=== PATIENT | female | born 1970 | race Caucasian/White ===

== ENCOUNTER 2017-06-13 15:45 | Observation (INO) ==
[2017-06-13] MEDS ORDERED: 0.9 % Sodium Chloride 1,000 ML IVC ONE (15:51)
[2017-06-13] MEDS ORDERED: *HR* Promethazine 25 MG/ML VIAL IVP ONE ×2 (15:51→18:52)
[2017-06-13] MEDS ORDERED: *HR* HYDROmorphone (PF) 1 MG/ML SYRINGE IVP ONE ×2 (15:51→18:54)
--- NOTE | 2017-06-13 16:10 | Emergency Department Note ---
Disposition Clinical Impression: Pneumonia Nausea & vomiting Qualifiers: Vomiting type: unspecified Vomiting Intractability: non-intractable Qualified Code(s): R11.2 - Nausea with vomiting, unspecified Abdominal pain Qualifiers: Abdominal location: generalized Qualified Code(s): R10.84 - Generalized abdominal pain Disposition: Admitted As Inpatient Condition: Good Time of Disposition: 19:10 General Adult HPI - General Chief complaint: ED Nausea/Vomiting/Diarrhea Stated complaint: N/V x3 days Time Seen by Provider: 06/13/17 15:48 Source: patient, EMS Mode of arrival: EMS Limitations: no limitations Nursing Notes Reviewed: Yes Vital Signs Reviewed: Yes - History of Present Illness HPI Narrative: Patient is a 46-year-old female that presents to the emergency department with abdominal pain and nausea and vomiting. She states that on her she was diagnosed with pneumonia and was treated with antibiotics. On June 01 she had a removal of an ovary and the tube. The past 3 days she has had increased abdominal pain and nausea and vomiting. She has tried taking Zofran and the pain medication was prescribed by her doctor which does not seem to help. She states that the pain is a stabbing pain all over her abdomen. She rates the pain as a 9 out of 10. Patient states that she has some mild shortness of breath and chills. Patient denies any chest pain, fever, urinary symptoms or any changes in her bowels. Pain Scale: 10 - Related Data Home Medications Medication Instructions Recorded Confirmed Albuterol Sulfate [Albuterol 2 puff IH Q4H PRN 06/13/17 06/13/17 Inhaler] Previous Rx's Medication Instructions Recorded Ibuprofen [Motrin] 600 mg PO Q6HR PRN #40 tab 06/03/17 Oxycodone HCl/Acetaminophen 1 each PO Q4H PRN #40 tablet 06/03/17 [Percocet 5-325 mg Tablet] Allergies Allergy/AdvReac Type Severity Reaction Status Date / Time No Known Allergies Allergy Verified 06/03/17 09:19 All systems ED: reviewed and negative except as stated. Constitutional: Reports: chills. Denies: fever Cardiovascular: Denies: chest pain Respiratory: Reports: dyspnea Gastrointestinal: Reports: abdominal pain, nausea, vomiting. Denies: diarrhea Genitourinary: Denies: urgency, dysuria, frequency, hematuria Past Medical History - Past Medical History Medical history: Reports: other Surgical history: Reports: Psychiatric history: Reports: panic disorder [employer] ENG[employer] history: Reports: non-contributory - Social History Smoking Status: Former smoker Smokeless Tobacco Status: No Alcohol use: Reports: none Drug use: Reports: none Physical Exam - General Limitations: no limitations General appearance: alert, other (Appears to be uncomfortable) - Neck Neck exam: Present: normal inspection, full ROM, trachea midline - Respiratory Respiratory exam: Present: other (Rales and left lower lobe). Absent: respiratory distress - Cardiovascular Cardiovascular exam: Present: regular rate, normal rhythm, normal heart sounds, +S1, +S2 - Abdominal Exam Abdominal exam: Present: soft, tenderness (Inconsistent tenderness of the abdomen. Patient states that she has diffuse tenderness on palpation but there is no palpation when the patient was distracted and the stethoscope was pressed on the abdomen to auscultate.), diminished bowel sounds Abdominal tenderness: Present: diffuse, moderate - Neurological Exam Neurological exam: Present: alert, oriented X3 - Psychiatric Psychiatric exam: Present: normal affect, normal mood - Skin Skin exam: Present: warm, dry, intact Course Vital Signs Temperature 98.1 F 06/13/17 15:48 Pulse Rate 91 06/13/17 15:48 Respiratory Rate 22 06/13/17 15:48 Blood Pressure 135/105 06/13/17 15:48 O2 Sat by Pulse Oximetry 98 06/13/17 15:48 Temperature 98.0 F 06/14/17 10:53 Pulse Rate 79 06/14/17 10:53 Respiratory Rate 18 06/14/17 11:06 Blood Pressure 90/54 06/14/17 10:53 O2 Sat by Pulse Oximetry 95 06/14/17 11:06 Oxygen Delivery Oxygen Delivery Room Air Medical Decision Making - MDM Narrative Medical decision making narrative: The patient having abdominal pain after surgery as well as nausea and vomiting we have ordered a CBC, BMP, hepatic panel, EKG, troponin and chest x-ray, CT of the abdomen and pelvis, lactic acid and blood cultures. We have also ordered Phenergan and Dilaudid to help with the pain and nausea. The chest x-ray showed no acute abnormality. The CT scan of the abdomen and pelvis showed bibasilar infiltrate and atelectasis, No acute intra-abdominal pathology was noted. This is likely suspicious for pneumonia and we have started the patient on vancomycin and Zosyn at this time. We have also given pain medication as well as Phenergan for the patient's nausea and abdominal discomfort. On examination there is some inconsistencies with the abdominal pain. On palpation he patient was acutely tender diffusely but when auscultating on the abdomen and pressing with the stethoscope while the patient was distracted there was no reaction of pain. Due to the patient having failed outpatient therapy for pneumonia approximately 2 weeks ago and having been hospitalized for her recent surgery we will treat her pneumonia with vancomycin and Zosyn. I called and spoke with the hospitalist service and they have accepted the patient. She will be admitted to the hospital at this time. - Medical Records Medical records reviewed: Yes I reviewed the patient's medical records. - Lab Data Lab results reviewed: Yes I reviewed the patient's lab results. Result diagrams: 06/14/17 04:34 06/14/17 04:34 Lab Results 06/13/17 06/13/17 06/13/17 Range/Units 16:52 16:52 16:52 WBC 9.6 (4.3-11.1) K/mcL RBC 5.38 H (3.82-4.97) M/mcL Hgb 14.8 (11.5-15.4) g/dL Hct 46.1 H (35.3-44.9) % MCV 85.7 (83.0-100.0) fL MCH 27.5 L (28.0-33.3) pg MCHC 32.1 (31.6-35.5) g/dL RDW 13.3 (11.5-14.5) % Plt Count 264 (140-400) K/mcL MPV 10.0 (9.4-12.4) fL Immature Gran % 0.4 (0-4) % Seg Neutrophils % 83.1 % Lymphocytes % 12.5 % Monocytes % 3.4 % Eosinophils % 0.3 % Basophils % 0.3 % Neutrophils # 8.0 (1.6-8.9) K/mcL Lymphocytes # 1.2 (0.6-4.6) K/mcL Monocytes # 0.3 (0.0-1.3) K/mcL Eosinophils # 0.0 (0.0-0.6) K/mcL Basophils # 0.0 (0.0-0.2) K/mcL PT (9.4-12.1) Seconds INR Sodium 139 (136-145) mEq/L Potassium 4.1 (3.5-4.5) mEq/L Chloride 104 (98-109) mEq/L Carbon Dioxide 28 (19-29) mEq/L BUN 14 (7-20) mg/dL Creatinine 1.10 (0.57-1.11) mg/dL Est GFR ( Amer) > 60 (> 60) Est GFR (Non-Af Amer) 53 L (> 60) BUN/Creatinine Ratio 13 (6-26) Glucose 125 H (70-99) mg/dL Calculated Osmolality 290 (280-300) Lactic Acid (0.5-2.2) mmol/L Calcium 9.8 (8.6-10.8) mg/dL Phosphorus (2.3-4.7) mg/dL Magnesium (1.6-2.6) mg/dL Total Bilirubin 0.5 (0.2-1.2) mg/dL Direct Bilirubin 0.2 (0.0-0.5) mg/dL Indirect Bilirubin 0.3 (0.0-1.2) mg/dL AST 29 (5-34) Units/L ALT 35 (0-55) Units/L Alkaline Phosphatase 129 H (38-126) Units/L Troponin I 0.00 (0-0.03) ng/mL Serum Total Protein 8.5 H (6.0-8.3) g/dL Albumin 3.6 (3.5-5.0) g/dL Globulin 4.9 H (2.4-3.5) g/dL Albumin/Globulin Ratio 0.7 L (1.1-2.2) Lipase 14 (8-78) Units/L 06/13/17 06/13/17 06/13/17 Range/Units 16:52 16:52 16:52 WBC (4.3-11.1) K/mcL RBC (3.82-4.97) M/mcL Hgb (11.5-15.4) g/dL Hct (35.3-44.9) % MCV (83.0-100.0) fL MCH (28.0-33.3) pg MCHC (31.6-35.5) g/dL RDW (11.5-14.5) % Plt Count (140-400) K/mcL MPV (9.4-12.4) fL Immature Gran % (0-4) % Seg Neutrophils % % Lymphocytes % % Monocytes % % Eosinophils % % Basophils % % Neutrophils # (1.6-8.9) K/mcL Lymphocytes # (0.6-4.6) K/mcL Monocytes # (0.0-1.3) K/mcL Eosinophils # (0.0-0.6) K/mcL Basophils # (0.0-0.2) K/mcL PT 13.2 H (9.4-12.1) Seconds INR 1.2 Sodium (136-145) mEq/L Potassium (3.5-4.5) mEq/L Chloride (98-109) mEq/L Carbon Dioxide (19-29) mEq/L BUN (7-20) mg/dL Creatinine (0.57-1.11) mg/dL Est GFR ( Amer) (> 60) Est GFR (Non-Af Amer) (> 60) BUN/Creatinine Ratio (6-26) Glucose (70-99) mg/dL Calculated Osmolality (280-300) Lactic Acid 1.6 (0.5-2.2) mmol/L Calcium (8.6-10.8) mg/dL Phosphorus 3.1 (2.3-4.7) mg/dL Magnesium 1.6 (1.6-2.6) mg/dL Total Bilirubin (0.2-1.2) mg/dL Direct Bilirubin (0.0-0.5) mg/dL Indirect Bilirubin (0.0-1.2) mg/dL AST (5-34) Units/L ALT (0-55) Units/L Alkaline Phosphatase (38-126) Units/L Troponin I (0-0.03) ng/mL Serum Total Protein (6.0-8.3) g/dL Albumin (3.5-5.0) g/dL Globulin (2.4-3.5) g/dL Albumin/Globulin Ratio (1.1-2.2) Lipase (8-78) Units/L - Radiology Data Radiology results reviewed: Yes I reviewed the patient's radiology results. Abdomen/Pelvis CT 06/13/17 15:53 IMPRESSION: Bibasilar infiltrates and atelectasis. D/ / Bridger Graves MD / Bridger Graves MD Interpreting Provider: Bridger Graves MD Chest X-Ray 06/13/17 16:00 IMPRESSION: No acute findings. D/ / Lorraine Funk MD / Lorraine Funk MD Interpreting Provider: Lorraine Funk MD Attestation Statement - Attestation Attestation: I examined this patient and my medical decision-making was reviewed with the Resident Physician, Dr. Ambrosio. I agree with the documented findings, disposition and treatment plan as described except to the extent set forth below. Pt is a 46 yo wf, brought to us by EMS for abd pain, and N/V following pelvic surgery by Dr. Rico. Pt s/p R tube/ovary removal for a complex overian cyst causing pelvic pain on 06/03/17. Pt DC'd on 06/04, and while assessed in ED prior to admission for her surgery, was diagnosed with pneumonia, and on antibiotics. Pt did well post op and DC'd home. Pt c/o not feeling well for the past week, then developed intractable N/V today with grad worsening abd pain, which is generalized. VSS on arrival. Pt actively vomiting on arrival to ED. I agree with pt's PE as documented. Pt placed on monitor/pulse ox, IV established, labs sent and IVF started with phenergan/morphine given. EKG shows no acute ischemia. Labs wnl. Lactate wnl. CT wnl, shows bilateral consolidation in lung bases. Will cover for pneumonia, blood cxs obtained and antibx initiated in ED. IVF continued. Pt continues to have N/V despite antiemetics. Will admit for further mgmt and eval for post op pneumonia, intractable N/V. Accepted by hospitalist.
[2017-06-13 17:03] LABS: Basophils % 0.3 %; Eosinophils % 0.3 %; Hematocrit 46.1 % (35.3-44.9); Hemoglobin 14.8 g/dL (11.5-15.4); Immature Granulocytes % 0.4 % (0-4); Lymphocytes # 1.2 K/mcL (0.6-4.6); Lymphocytes % 12.5 %; Mean Corpuscular HGB Conc 32.1 g/dL (31.6-35.5); Mean Corpuscular Hemoglobin 27.5 pg (28.0-33.3); Mean Corpuscular Volume 85.7 fL (83.0-100.0); Monocytes # 0.3 K/mcL (0.0-1.3); Monocytes % 3.4 %; Platelet Count 264 K/mcL (140-400); Red Blood Count 5.38 M/mcL (3.82-4.97); Red Cell Distribution Width 13.3 % (11.5-14.5); Segmented Neutrophils % 83.1 %
[2017-06-13 17:21] LABS: Alanine Aminotransferase 35 Units/L (0-55); Albumin 3.6 g/dL (3.5-5.0); Albumin/Globulin Ratio 0.7 (1.1-2.2); Alkaline Phosphatase 129 Units/L (38-126); Aspartate Amino Transferase 29 Units/L (5-34); BUN/Creatinine Ratio 13 (6-26); Bilirubin,Direct 0.2 mg/dL (0.0-0.5); Bilirubin,Indirect 0.3 mg/dL (0.0-1.2); Bilirubin,Total 0.5 mg/dL (0.2-1.2); Blood Urea Nitrogen 14 mg/dL (7-20); Calcium 9.8 mg/dL (8.6-10.8); Carbon Dioxide 28 mEq/L (19-29); Chloride 104 mEq/L (98-109); Globulin 4.9 g/dL (2.4-3.5); Glucose 125 mg/dL (70-99); Lipase 14 Units/L (8-78); Osmolality,Calculated 290 (280-300); Potassium 4.1 mEq/L (3.5-4.5); Sodium 139 mEq/L (136-145); Total Protein 8.5 g/dL (6.0-8.3); eGFR For African Americans > 60 (> 60); eGFR For Non-African Americans 53 (> 60)
[2017-06-13] MEDS ORDERED: Piperacillin/Tazobactam 4.5 GM in D5% in Water (Mini-Bag+) 100 ML IVPB ONE (18:53)
[2017-06-13] MEDS ORDERED: Vancomycin 1,000 MG in D5% in Water 250 ML IVPB ONE (18:54)
--- NOTE | 2017-06-13 19:58 | Internal Med History&Physical ---
<Kiel Bobo - Last Filed: 06/13/17 23:25> Date of Encounter: 06/13/17 Time of Encounter: 19:56 Assessment and Plan (1) Acute exacerbation of chronic obstructive pulmonary disease (COPD) Current visit: Yes Status: Acute Continue Solumedrol, Duonebs, and antibiotics. Recent 10 day treatment with Levaquin. Patient will need outpatient pulmonology follow up for PFTs. (2) Pneumonia Current visit: Yes Status: Suspected Unlikely PNA. Patient is afebrile, no cough or sputum production, positive chills, SOB, wheezing Patient recently completed 10 day course of Levaquin for pneumonia diagnosed on 05/28/17 CT adb/plv shows bibasilar infiltrates and atelectasis (possible residual infiltrates from recent PNA) Given Vanc and Zosyn in the ED. Given recent treatment with Levaquin, will treat with Doxcycline at ths time CT chest pending. if negative will stop Doxycycline Blood and sputum cultures ordered. Continue incentive spirometry and Duonebs. Qualifiers: Pneumonia type: due to unspecified organism Laterality: bilateral Lung location: lower lobe of lung Qualified Code(s): J18.9 - Pneumonia, unspecified organism (3) Abdominal pain Current visit: Yes Status: Acute POD # 10 s/p bilateral salpingo and right oophorectomy on 06/03/17 Patient reports her brother has colon cancer and she denies having a previous EGD/ colonoscopy. CT/abd plv shows Bibasilar infiltrates and atelectasis with no acute intra- abdominal abnormality Pain control with Dilaudid & Percocet Gallbladder ultrasound ordered to r/o cholecystitis Hepatitis panel pending Qualifiers: Abdominal location: generalized Qualified Code(s): R10.84 - Generalized abdominal pain (4) Nausea & vomiting Current visit: Yes Status: Acute Continue Zofran IV prn Qualifiers: Vomiting type: unspecified Vomiting Intractability: non-intractable Qualified Code(s): R11.2 - Nausea with vomiting, unspecified (5) Tobacco dependence Current visit: Yes Status: Acute Tobacco cessation counseling. Patient reports she spotted smoking 1 week ago and has a 25 pack year history of smoking. (6) DVT prophylaxis Current visit: Yes Status: Acute SCDs Internal Medicine - H&P: HPI Chief complaint: Abd pain, SOB Admitted From: Home Plans for Post Hospital Care: Home History of present illness: Ms. Harrington is a 46 year old female with a PMH of COPD, panic disorder, tobacco dependence, bilateral salpingo and right oophorectomy on 06/01/17 for abdominal pain, and recently completed 10 day course of Levaquin for pneumonia diagnosed on 05/28/17 that presented c/o SOB, abd pain, N/V/D, and chills for the past 6 days. She reports 9/10 severity sharp, stabbing generalized abdominal pain, bilious emesis, anorexia, and not being able to keep her post-op Percocet down at home due to vomiting. Patient denies fever, cough, sputum production, CP, constipation, dysuria, frequency, hematuria, back pain, changes in surgical wounds, or leg swelling. Patient reports her brother has colon cancer and she denies having a previous EGD/ colonoscopy. Patient reports she spotted smoking 1 week ago and has a 25 pack year history of smoking. Past Med Surg Social Fam HX - Past Medical History Medical history: COPD, other (pelvic pain) Psychiatric history: panic disorder - Past Surgical History Surgical History: , other (BSO) - Social History Smoking Status: Current every day smoker Smokeless Tobacco Status: No Alcohol use: none Drug use: none Current living situation: With Family Activity Level: Independent ambulation - Family History Mother Living Status: Hx Family Cardiac Disorders: Yes (HTN) Father Living Status: Hx Family Cardiac Disorders: Yes (NE) Internal Medicine - H&P: Meds Ibuprofen [Motrin] 600 mg PO Q6HR PRN #40 tab 06/03/17 [Rx] Oxycodone HCl/Acetaminophen [Percocet 5-325 mg Tablet] 1 each PO Q4H PRN #40 tablet 06/03/17 [Rx] Albuterol Sulfate [Albuterol Inhaler] 2 puff IH Q4H PRN 06/13/17 [History] 3 Allergy/AdvReac Type Severity Reaction Status Date / Time No Known Allergies Allergy Verified 06/03/17 09:19 All Systems PM: A 10-system review of systems was performed and is negative for pertinent findings except as documented above in the HPI. - Constitutional Constitutional: anorexia, chills, no fever(s), no weight gain, no weight loss - EENT Eyes: no change in vision Nose, mouth and throat: no nasal congestion, no sinus pressure, no sore throat - Cardiovascular Cardiovascular ROS IM: no chest pain, no palpitations - Respiratory Respiratory: dyspnea, wheezing, no cough, no excessive phlegm production, no change in phlegm color - Gastrointestinal Gastrointestinal: abdominal pain, diarrhea, nausea, vomiting, no hematemesis - Genitourinary Genitourinary: no dysuria, no urinary frequency, no urinary urgency Menstruation: post menopausal - Musculoskeletal Musculoskeletal ROS IM: no back pain, no numbness, no tingling - Integumentary Integumentary IM: no erythema - Neurological Neurological ROS: no confusion, no numbness, no tingling, no weakness - Psychiatric Psychiatric: no anxiety, no depression - Endocrine Endocrine IM: no polydipsia, no polyphagia, no polyuria - Constitutional Vitals: Temp Pulse Resp BP Pulse Ox 98.6 F 93 14 140/88 98 06/13/17 18:45 06/13/17 19:25 06/13/17 19:25 06/13/17 19:25 06/13/17 19:25 General appearance: Present: cooperative, A&O X 3, pleasant, no acute distress, answers questions appropriately - Head Head exam: Present: atraumatic, normal inspection, normocephalic - Eye Eye exam: Present: EOMI, PERRL - ENT ENT exam: Present: mucous membranes moist, normal oropharynx - Neck Neck exam general surgery: Present: normal inspection, supple. Absent: lymphadenopathy, tenderness - Respiratory Respiratory exam: Present: prolonged expiratory phase, wheezes. Absent: accessory muscle use, respiratory distress - Cardiovascular Cardiovascular exam: Present: RRR, +S1, +S2 - GI/Abdominal GI/Abdominal exam: Present: guarding, hypoactive bowel sounds, rebound, soft. Absent: distended, firm - Extremities Exam Extremities exam: Present: full ROM, warm. Absent: pedal edema - Back Exam Back exam: Present: full ROM, normal inspection. Absent: paraspinal tenderness - Neurological Exam Neurological exam: Present: alert, CN II-XII intact, strengths equal and symetr throughout, speech deficit. Absent: altered - Psychiatric Psychiatric exam: Present: anxious, normal mood - Skin Skin exam: Present: dry (abd incisions C/D/I x4 lower abd, no signs of infection ), normal color (tattoos), warm. Absent: erythema Internal Med - H&P Results - Labs CBC & Chem 7: 06/13/17 16:52 06/13/17 16:52 - Impressions Impressions Abdomen/Pelvis CT 06/13/17 15:53 IMPRESSION: Bibasilar infiltrates and atelectasis. D/ / Bridger Graves MD / Bridger Graves MD Interpreting Provider: Bridger Graves MD Chest X-Ray 06/13/17 16:00 IMPRESSION: No acute findings. D/ / Lorraine Funk MD / Lorraine Funk MD Interpreting Provider: Lorraine Funk MD <Jose Ramon Santo T - Last Filed: 06/14/17 01:20> Date of Encounter: 06/14/17 Internal Medicine - H&P: HPI History of present illness: Ms. Harrington is a 46 year old female All Systems PM: A 10-system review of systems was performed and is negative for pertinent findings except as documented above in the HPI. - Constitutional Vitals: Temp Pulse Resp BP Pulse Ox 98.9 F 92 16 95/59 95 06/13/17 23:54 06/13/17 23:54 06/13/17 23:54 06/13/17 23:54 06/13/17 23:54 Internal Med - H&P Results - Labs CBC & Chem 7: 06/13/17 16:52 06/13/17 16:52 - Attending Attestation I have independently seen and examined this patient on 06/13/17 and reviewed plan of care with the SAFE DEPOSIT CLERK/resident physician and the patient She is admitted after presenting to ER with abdominal discomfort, nausea and vomiting She has no fever, cough, or shortness of breath She denies chest pain, palpitations or dizziness Physical Exam: VSS, not in distress. Neuro: AAOX3, no gross deficits, chest is CTAB, abdomen is soft and vaguely tender without rebound, periumbilical scar is intact, no guarding. BS present in all quadrants. Her chest is CTAB Labs and Imaging reviewed: CBC/chem/FT/Lipase WNL. Abdomen CT with bibasilar infiltrates, CXR is clear A/P Enteritis: Supportive care, obtain gall bladder USS, LFTS are normal. Bilateral infiltrates: Patient has no symptoms of pneumonia. Obtain Chest CT. D/ C antibiotics if Chest CT is negative, continue Doxycycline only if chest imaging supports Pneumonia COPDE: Duonebs/Prednisone/Doxycyline Rest of details as in resident physicians documentation
[2017-06-13] MEDS ORDERED: Naloxone 0.4 MG/ML INJ IVP PRN (20:30)
[2017-06-13] MEDS ORDERED: *HR* Morphine 2 MG/ML SYRINGE IVP PRN (20:30)
[2017-06-13] MEDS ORDERED: Ondansetron 4 MG/2 ML VIAL IVP PRN (20:30)
[2017-06-13] MEDS ORDERED: 0.9 % Sodium Chloride 1,000 ML IVC SCH (20:30)
[2017-06-13] MEDS ORDERED: *HR* OxyCODONE/APAP 5/325 TABLET PO PRN (20:34)
[2017-06-13] MEDS ORDERED: Vancomycin (wt based) 1,000 MG VIAL IVPB SCH (21:00)
[2017-06-13 21:10] LABS: INR 1.2; Prothrombin Time 13.2 Seconds (9.4-12.1)
[2017-06-13] MEDS ORDERED: methylPREDNISolone 125 MG/2 ML VIAL IVP ONE (21:25)
[2017-06-13] MEDS ORDERED: Vancomycin 1,250 MG in D5% in Water 250 ML IVPB SCH ×2 (22:00)
[2017-06-13 22:33] LABS: Magnesium 1.6 mg/dL (1.6-2.6); Phosphorous 3.1 mg/dL (2.3-4.7)
[2017-06-13] MEDS: Ipratropium/Albuterol Neb 3 ML IH SCH ×2 (22:46→23:08)
[2017-06-13] MEDS: *HR* HYDROmorphone (PF) 1 MG/ML SYRINGE IVP PRN (22:59)
[2017-06-14] MEDS ORDERED: Piperacillin/Tazobactam 3.375 GM in D5% in Water (Mini-Bag+) 100 ML IVPB SCH (03:00)
[2017-06-14] MEDS: Ipratropium/Albuterol Neb 3 ML IH SCH ×3 (03:55→11:05)
[2017-06-14 04:06] LABS: Bilirubin,Urine Negative (Negative); Blood,Urine Negative (Negative); Clarity,Urine Clear (Clear); Color,Urine Yellow (Yellow); Glucose,Urine (UA) Normal (Normal); Ketones,Urine Negative (Negative); Leukocyte Esterase,Urine Negative (Negative); Nitrite,Urine Negative (Negative); PH,Urine 7.5 pH Units (5.0-8.0); Protein,Urine 30 mg/dL (Neg-Trace); Specific Gravity,Urine > 1.030 (1.010-1.025); Urobilinogen,Urine Normal (Normal)
[2017-06-14 04:08] LABS: Bacteria,Urine Few per hpf (None-Few); Hyaline Casts,Urine Few per lpf (None-Few); Squamous Epithelial Cell,Urine Many per lpf (None-Few)
[2017-06-14 04:50] LABS: Calcium Oxalate Crystals,Urine Present; Yeast,Urine Few per hpf (None Seen)
[2017-06-14 05:14] LABS: Basophils % 0.2 %; Eosinophils % 0.1 %; Hematocrit 40.2 % (35.3-44.9); Immature Granulocytes % 0.4 % (0-4); Lymphocytes # 1.2 K/mcL (0.6-4.6); Lymphocytes % 11.6 %; Mean Corpuscular HGB Conc 32.8 g/dL (31.6-35.5); Mean Corpuscular Hemoglobin 28.5 pg (28.0-33.3); Mean Corpuscular Volume 86.8 fL (83.0-100.0); Mean Platelet Volume 10.3 fL (9.4-12.4); Monocytes # 0.1 K/mcL (0.0-1.3); Neutrophils # 8.8 K/mcL (1.6-8.9); Platelet Count 231 K/mcL (140-400); Red Blood Count 4.63 M/mcL (3.82-4.97); Red Cell Distribution Width 13.4 % (11.5-14.5); Segmented Neutrophils % 86.7 %
[2017-06-14 05:24] LABS: Hemoglobin 13.2 g/dL (11.5-15.4)
[2017-06-14 05:33] LABS: Alanine Aminotransferase 25 Units/L (0-55); Albumin/Globulin Ratio 0.7 (1.1-2.2); Alkaline Phosphatase 105 Units/L (38-126); Aspartate Amino Transferase 21 Units/L (5-34); BUN/Creatinine Ratio 15 (6-26); Bilirubin,Total 0.5 mg/dL (0.2-1.2); Blood Urea Nitrogen 15 mg/dL (7-20); Calcium 8.9 mg/dL (8.6-10.8); Carbon Dioxide 23 mEq/L (19-29); Chloride 106 mEq/L (98-109); Globulin 4.2 g/dL (2.4-3.5); Glucose 155 mg/dL (70-99); Osmolality,Calculated 290 (280-300); Potassium 3.6 mEq/L (3.5-4.5); Sodium 138 mEq/L (136-145); Total Protein 7.2 g/dL (6.0-8.3); eGFR For African Americans > 60 (> 60); eGFR For Non-African Americans 59 (> 60)
[2017-06-14] MEDS: *HR* HYDROmorphone (PF) 1 MG/ML SYRINGE IVP PRN (05:52)
[2017-06-14] MEDS ORDERED: Doxycycline 100 MG in 0.9 % Sodium Chloride Mini Bag 100 ML IVPB SCH (06:00)
[2017-06-14] MEDS ORDERED: methylPREDNISolone 125 MG/2 ML VIAL IVP SCH (06:00)
[2017-06-14] MEDS ORDERED: Famotidine 20 MG/2 ML VIAL IVP SCH (06:00)
[2017-06-14 09:40] LABS: Hepatitis A Antibody IgM Nonreactive (Nonreactive); Hepatitis B Core IgM Nonreactive (Nonreactive); Hepatitis B Surface Antigen Nonreactive (Nonreactive); Hepatitis C Virus Antibody Nonreactive (Nonreactive)
[2017-06-14 10:57] VITALS: BP 90/54
--- NOTE | 2017-06-14 13:26 | Discharge Summary ---
Date of Encounter: 06/14/17 Time of Encounter: 11:15 - Discharge Diagnosis (1) Abdominal pain Priority: Primary Status: Acute Qualifiers: Abdominal location: generalized Qualified Code(s): R10.84 - Generalized abdominal pain (2) Acute exacerbation of chronic obstructive pulmonary disease (COPD) Priority: Secondary Status: Resolved (3) Nausea & vomiting Priority: Secondary Status: Acute Qualifiers: Vomiting type: unspecified Vomiting Intractability: non-intractable Qualified Code(s): R11.2 - Nausea with vomiting, unspecified (4) Tobacco dependence Priority: Secondary Status: Acute (5) Pneumonia Priority: Secondary Status: Ruled-out Qualifiers: Pneumonia type: due to unspecified organism Laterality: bilateral Lung location: lower lobe of lung Qualified Code(s): J18.9 - Pneumonia, unspecified organism (6) DVT prophylaxis Priority: Secondary Status: Acute (7) Anxiety disorder Priority: Secondary Status: Acute Qualifiers: Anxiety disorder type: generalized anxiety disorder Qualified Code(s): F41.1 - Generalized anxiety disorder - Discharge Medications Prescriptions: Promethazine [Phenergan] 25 mg PO Q6HR PRN #30 tablet PRN Reason: Nausea And Vomiting ALPRAZolam [Xanax 0.5 MG Tablet] 0.5 mg PO DAILY PRN #10 tablet PRN Reason: Anxiety/PTSD Famotidine [Pepcid] 20 mg PO BID #30 tablet Paroxetine [Paxil] 20 mg PO DAILY #30 tablet Home Medications: Oxycodone HCl/Acetaminophen [Percocet 5-325 mg Tablet] 1 each PO Q4H PRN #40 tablet 06/03/17 [Rx] Albuterol Sulfate [Albuterol Inhaler] 2 puff IH Q4H PRN 06/13/17 [History] ALPRAZolam [Xanax 0.5 MG Tablet] 0.5 mg PO DAILY PRN #10 tablet 06/14/17 [Rx] Famotidine [Pepcid] 20 mg PO BID #30 tablet 06/14/17 [Rx] Paroxetine [Paxil] 20 mg PO DAILY #30 tablet 06/14/17 [Rx] Promethazine [Phenergan] 25 mg PO Q6HR PRN #30 tablet 06/14/17 [Rx] Allergies/Adverse Reactions: 3 Allergy/AdvReac Type Severity Reaction Status Date / Time No Known Allergies Allergy Verified 06/03/17 09:19 Procedures/tests Complete & Pending: Procedures Performed prior 72 hours Category Date Time Status CT chest wo con [CT] Stat Cat Scan 06/14/17 08:00 Completed US gall bladder [US] Routine Exams 06/14/17 08:30 Completed - Notes to Outpatient Provider During her stay here, a chest CT scan was done and it showed presence of bilateral lower lobe atelectasis/infiltrate. Patient had recently completed antibiotic therapy and did not have any features suggestive of pneumonia. As such no further antibiotics are indicated. She did have tiny subpleural nodules measuring about 3 mL in size bilaterally. These will need to be followed as outpatient per Fleischner Society guidelines. Patient is high risk due to prior smoking history. Date of admission: 06/13/17 19:32 Primary care physician: PCP NONE Consults: 06/13/17 20:39 Consult to Nurse Navigator [CONS] Routine Comment: Discharging clinician: Sherin King Anticipated date of discharge: 06/14/17 - Patient Status Disposition: Home, Self-Care Condition: Good Functional capacity at discharge: independent ambulation Overall status at discharge: patient is progressing back to baseline - Discharge Instructions Instructions: Chronic Obstructive Pulmonary Disease (DC) Follow Up With: Byron Shepard MD [Non-Partnered Physician] - (Patient will be able to schedule a new patient appointment after July. Thank you) Giovanna Lebron MD [Partnered Physician] - (in 1-2 weeks Web Request entered and the office will call the patient at home with date and time of appt. Thank you ) Forms: ED Satisfaction Letter - Diet and Activity Activity: increase activity as tolerated Diet: low fat, low cholesterol, low salt diet Hospital course: Ms. Harrington is a 46 year old female patient with history of COPD, anxiety disorder, PTSD, panic disorder, tobacco dependence presented to the ER with complaints of abdominal. She had been recently treated for pneumonia with levofloxacin. She reported sharp stabbing pain that was 9 out of 10 in severity along with bilious emesis. She was evaluated with a gallbladder ultrasound which showed dilated common bile duct without evidence of intrahepatic biliary ductal dilation. However her liver enzymes were not elevated. And she did not have any elevation in her bilirubin. She was recommended to have MRCP or ERCP if clinically indicated along with a HIDA scan. However, patient is feeling better today with regards to nausea and vomiting. While her abdominal pain remains, she wishes to be discharged home with outpatient follow-up. She seems to be having uncontrolled anxiety disorder as she has not been on her medications for a long time and has been under a lot of stress lately. She is in the process of setting up care with new primary care provider and requests medications to help deal with her anxiety. She is able to see them. She has been previously on Paxil and Xanax to help with her anxiety. She will be prescribed with Paxil and about 10 pills of Xanax to help with her panic disorder and PTSD. For her biliary disease, she is advised to follow-up with gastroenterology as early as possible for further investigation. She will be discharged home today. Hepatitis viral serology was negative. During her stay here, a chest CT scan was done and it showed presence of bilateral lower lobe atelectasis/infiltrate. Patient had recently completed antibiotic therapy and did not have any features suggestive of pneumonia. As such no further antibiotics are indicated. She did have tiny subpleural nodules measuring about 3 mL in size bilaterally. These will need to be followed as outpatient per Fleischner Society guidelines. Patient is high risk due to prior smoking history. - Time Spent with Patient Total time spent providing and/or coordinating discharge services: Greater than 30 minutes (35 min) - Constitutional Vitals: Temp Pulse Resp BP Pulse Ox 98.0 F 79 18 90/54 95 06/14/17 10:53 06/14/17 10:53 06/14/17 11:06 06/14/17 10:53 06/14/17 11:06 General appearance: Present: cooperative, A&O X 3, pleasant, no acute distress, answers questions appropriately - Neck Neck exam general surgery: Present: supple, trachea midline. Absent: lymphadenopathy - Respiratory Respiratory exam: Present: CTAB. Absent: accessory muscle use, rales, rhonchi, wheezes - Cardiovascular Cardiovascular exam: Present: RRR, +S1, +S2. Absent: diastolic murmur, gallop, rubs, systolic murmur - GI/Abdominal GI/Abdominal exam: Present: normal bowel sounds, soft, tenderness (generalized) , no peritoneal signs. Absent: distended - Extremities Exam Extremities exam: Present: warm, radial pulses palpable and symmetrical. Absent : calf tenderness, cyanotic, pedal edema
[2017-06-14] MEDS ORDERED: Famotidine 20 MG TABLET PO SCH (21:00)
--- NOTE | 2017-06-17 08:36 | Electrocardiograph Report ---
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
== END 2017-06-14 14:16 | disposition home or self-care (01) ==
LOC: EMEROO 15:45 → 3ANU 15:45
PROVIDERS: ADMIT Nurse Practitioner; ATTEND Internal Medicine

== ENCOUNTER 2017-06-18 14:27 | Observation (INO) ==
[2017-06-18 15:06] LABS: Basophils % 0.3 %; Eosinophils # 0.1 K/mcL (0.0-0.6); Eosinophils % 0.7 %; Hematocrit 43.4 % (35.3-44.9); Hemoglobin 14.3 g/dL (11.5-15.4); Immature Granulocytes % 0.6 % (0-4); Lymphocytes # 2.5 K/mcL (0.6-4.6); Lymphocytes % 21.4 %; Mean Corpuscular HGB Conc 32.9 g/dL (31.6-35.5); Mean Corpuscular Hemoglobin 27.3 pg (28.0-33.3); Mean Platelet Volume 9.5 fL (9.4-12.4); Monocytes # 0.4 K/mcL (0.0-1.3); Monocytes % 3.4 %; Neutrophils # 8.6 K/mcL (1.6-8.9); Platelet Count 295 K/mcL (140-400); Red Blood Count 5.23 M/mcL (3.82-4.97); Red Cell Distribution Width 13.3 % (11.5-14.5); Segmented Neutrophils % 73.6 %
[2017-06-18] MEDS ORDERED: Ondansetron ODT 4 MG TAB.RAPDIS SL ONE (15:15)
[2017-06-18 15:19] LABS: Bilirubin,Urine Negative (Negative); Blood,Urine Negative (Negative); Clarity,Urine Clear (Clear); Color,Urine Yellow (Yellow); Glucose,Urine (UA) Normal (Normal); Ketones,Urine Negative (Negative); Leukocyte Esterase,Urine Negative (Negative); Nitrite,Urine Negative (Negative); Protein,Urine 30 mg/dL (Neg-Trace); Specific Gravity,Urine 1.021 (1.010-1.025); Urobilinogen,Urine Normal (Normal)
[2017-06-18 15:20] LABS: Alanine Aminotransferase 19 Units/L (0-55); Albumin 3.4 g/dL (3.5-5.0); Albumin/Globulin Ratio 0.8 (1.1-2.2); Alkaline Phosphatase 110 Units/L (38-126); Aspartate Amino Transferase 15 Units/L (5-34); BUN/Creatinine Ratio 18 (6-26); Bilirubin,Direct 0.2 mg/dL (0.0-0.5); Bilirubin,Indirect 0.2 mg/dL (0.0-1.2); Bilirubin,Total 0.4 mg/dL (0.2-1.2); Blood Urea Nitrogen 15 mg/dL (7-20); Calcium 9.3 mg/dL (8.6-10.8); Carbon Dioxide 26 mEq/L (19-29); Chloride 100 mEq/L (98-109); Globulin 4.4 g/dL (2.4-3.5); Glucose 154 mg/dL (70-99); Lipase 13 Units/L (8-78); Osmolality,Calculated 286 (280-300); Sodium 136 mEq/L (136-145); Total Protein 7.8 g/dL (6.0-8.3); eGFR For African Americans > 60 (> 60); eGFR For Non-African Americans > 60 (> 60)
[2017-06-18 15:22] LABS: Bacteria,Urine None Seen per hpf (None-Few); Hyaline Casts,Urine None Seen per lpf (None-Few); Squamous Epithelial Cell,Urine Many per lpf (None-Few); WBC,Urine 0-3 per hpf (0-3)
--- NOTE | 2017-06-18 15:31 | Emergency Department Note ---
Disposition Clinical Impression: Hypokalemia Abdominal pain Qualifiers: Abdominal location: epigastric Qualified Code(s): R10.13 - Epigastric pain Disposition: Admitted As Inpatient Condition: Fair Forms: ED Satisfaction Letter, Work/School Release Time of Disposition: 18:19 Abdominal Pain HPI - General Chief Complaint: ED Abdominal Pain Stated Complaint: Abd pain/NV Time Seen by Provider: 06/18/17 14:48 Source: patient Mode of arrival: private vehicle Limitations: no limitations Nursing Notes Reviewed: Yes Vital Signs Reviewed: Yes - History of Present Illness HPI Narrative: Patient is a 38-year-old female who presented today for worsening epigastric abdominal pain. Pain is been going on since 06/03/17 when she had a right salpingooophorectomy by Dr. Bhat. Patient tells to the pain is in good epigastric region, is severe, characterized as sharp pain that radiates into her back, and is episodic. Patient denies any palliative factors, but states that eating or drinking anything elicits to [place]. Patient denies ever having been like this previously. Associated symptoms include nausea, vomiting ( without grossly black or bloody contents), anorexia, and constipation. Patient has felt febrile, but does not cite specific temperature reading. Denies any chest pain, SOA, dizziness/lightheadedness/syncope, dysuria, hematuria, abnormal vaginal discharge, or leg edema. Patient presented to the ED on 06/13/17 with same complaint; abdominal work up was negative, but atelectatic/consolidative findings noted on imaging, thus, patient was admitted for pneumonia. RUQ ultrasound was done at that time demonstrating biliary sludge and CBD dilatation, but otherwise negative; further evaluation was not completed and patient was discharged home. Patient does not have any known follow up that she is aware of for the abdominal pain and she presents today for worsening pain and anorexia. States she cannot keep any food or medication down. Pt Subjective Complaint: abdominal pain Onset (ago): week(s) (since 06/04/17 POD1 s/p right salpingooophorectomy) Consistency: other (episodic sharp pains in midepigastrium that radiate into back) Location: epigastric Pain Severity: severe Pain Scale: 9 Quality: stabbing Radiation: back Migration to: no migration Improves with: nothing Worsens with: eating Context: recent surgery/procedure Associated symptoms: Reports: nausea, vomiting, chills, constipation, anorexia. Denies: diarrhea, dysuria, hematemesis, hematochezia, syncope Treatments prior to arrival: none - Related Data Home Medications Medication Instructions Recorded Confirmed Albuterol Sulfate [Albuterol 2 puff IH Q4H PRN 06/13/17 06/13/17 Inhaler] Previous Rx's Medication Instructions Recorded Oxycodone HCl/Acetaminophen 1 each PO Q4H PRN #40 tablet 06/03/17 [Percocet 5-325 mg Tablet] ALPRAZolam [Xanax 0.5 MG Tablet] 0.5 mg PO DAILY PRN #10 tablet 06/14/17 Famotidine [Pepcid] 20 mg PO BID #30 tablet 06/14/17 Paroxetine [Paxil] 20 mg PO DAILY #30 tablet 06/14/17 Promethazine [Phenergan] 25 mg PO Q6HR PRN #30 tablet 06/14/17 Allergies Allergy/AdvReac Type Severity Reaction Status Date / Time No Known Allergies Allergy Verified 06/03/17 09:19 Abdominal Pain PMH - Past Medical History Medical history: Reports: other (complex right ovarian cyst; unaware of other medical conditions) Female Surgical History: Reports: , other (right salpingo-oophorectomy on 06/03/[address] 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 Absent: scleral icterus, conjunctival injection - ENT ENT exam: mucous membranes dry - Neck Neck exam: Present: normal inspection - Chest Chest inspection: Present: symmetric chest wall rise - Respiratory Respiratory exam: Present: normal lung sounds bilaterally - Cardiovascular Cardiovascular exam: Present: regular rate, normal rhythm. Absent: systolic murmur, diastolic murmur - Abdominal Exam Abdominal exam: Present: soft, tenderness, guarding, hypoactive bowel sounds, Segura's sign, other (well-healed post-op trocar sites). Absent: distention, rebound Abdominal tenderness: Present: epigastrium - Extremities Exam Extremities exam: Present: normal inspection. Absent: pedal edema - Back Exam Back exam: Present: CVA tenderness (R). Absent: CVA tenderness (L) - Neurological Exam Neurological exam: Present: alert, oriented X3 - Skin Skin exam: Present: warm, dry, intact, normal color. Absent: cyanosis, diaphoresis, pallor Course Course Narrative: Labwork ordered to assess for liver function. CT Abd/Pelv w/contrast to assess for acute intra-abdominal pathology as well as obstructing ureteral stone. Patient given IVF at maintenance rate, ODT Zofran 4mg, PO KCl for serum K+ of 3.0, and 15mg IVP Toradol. - Reevaluation(s) Reevaluation #1: CT of the abdomen talus revealing acute intra-abdominal pathology, urinary tract , or any biliary pathology. Patient continues to have significant pain and nausea. Hospitalist consulted. Patient is accepted for admission for nausea/ pain, hypokalemia, and further assessment by GI for possible biliary pathology. Vital Signs Temperature 98.9 F 06/18/17 14:28 Pulse Rate 83 06/18/17 14:28 Respiratory Rate 16 06/18/17 14:28 Blood Pressure 128/77 06/18/17 14:28 O2 Sat by Pulse Oximetry 94 06/18/17 14:28 Temperature 98.9 F 06/18/17 14:28 Pulse Rate 83 06/18/17 14:28 Respiratory Rate 16 06/18/17 14:28 Blood Pressure 128/77 06/18/17 14:28 O2 Sat by Pulse Oximetry 94 06/18/17 14:28 Oxygen Delivery Oxygen Delivery Room Air Abdominal Pain - MDM Narrative Medical decision making narrative: Despite slight elevation white count and mild hypokalemia, patient's work up in the ED today has otherwise been unremarkable. Patient does however still have intractable nausea, anorexia, and moderate to severe pain in the epigastric region. Consulted with hospitalist on this case and will admit patient due to PO intolerance/anorexia as well as G.I. consult for further evaluation of previously noted biliary tract findings which included common bile duct dilatation and biliary sludge. - Differential Diagnosis Differential Diagnosis: Likely: abdominal pain non-specific (suspect biliary process) - Lab Data Lab results reviewed: Yes I reviewed the patient's lab results. Lab results narrative: Laboratory Last Values WBC 11.6 K/mcL (4.3-11.1) H 06/18/17 15:00 RBC 5.23 M/mcL (3.82-4.97) H 06/18/17 15:00 Hgb 14.3 g/dL (11.5-15.4) 06/18/17 15:00 Hct 43.4 % (35.3-44.9) 06/18/17 15:00 MCV 83.0 fL (83.0-100.0) 06/18/17 15:00 MCH 27.3 pg (28.0-33.3) L 06/18/17 15:00 MCHC 32.9 g/dL (31.6-35.5) 06/18/17 15:00 RDW 13.3 % (11.5-14.5) 06/18/17 15:00 Plt Count 295 K/mcL (140-400) 06/18/17 15:00 MPV 9.5 fL (9.4-12.4) 06/18/17 15:00 Immature Gran % 0.6 % (0-4) 06/18/17 15:00 Seg Neutrophils % 73.6 % 06/18/17 15:00 Lymphocytes % 21.4 % 06/18/17 15:00 Monocytes % 3.4 % 06/18/17 15:00 Eosinophils % 0.7 % 06/18/17 15:00 Basophils % 0.3 % 06/18/17 15:00 Neutrophils # 8.6 K/mcL (1.6-8.9) 06/18/17 15:00 Lymphocytes # 2.5 K/mcL (0.6-4.6) 06/18/17 15:00 Monocytes # 0.4 K/mcL (0.0-1.3) 06/18/17 15:00 Eosinophils # 0.1 K/mcL (0.0-0.6) 06/18/17 15:00 Basophils # 0.0 K/mcL (0.0-0.2) 06/18/17 15:00 Sodium 136 mEq/L (136-145) 06/18/17 15:00 Potassium 3.0 mEq/L (3.5-4.5) L 06/18/17 15:00 Chloride 100 mEq/L (98-109) 06/18/17 15:00 Carbon Dioxide 26 mEq/L (19-29) 06/18/17 15:00 BUN 15 mg/dL (7-20) 06/18/17 15:00 Creatinine 0.84 mg/dL (0.57-1.11) 06/18/17 15:00 Est GFR ( Amer) > 60 (> 60) 06/18/17 15:00 Est GFR (Non-Af Amer) > 60 (> 60) 06/18/17 15:00 BUN/Creatinine Ratio 18 (6-26) 06/18/17 15:00 Glucose 154 mg/dL (70-99) H 06/18/17 15:00 Calculated Osmolality 286 (280-300) 06/18/17 15:00 Calcium 9.3 mg/dL (8.6-10.8) 06/18/17 15:00 Total Bilirubin 0.4 mg/dL (0.2-1.2) 06/18/17 15:00 Direct Bilirubin 0.2 mg/dL (0.0-0.5) 06/18/17 15:00 Indirect Bilirubin 0.2 mg/dL (0.0-1.2) 06/18/17 15:00 AST 15 Units/L (5-34) 06/18/17 15:00 ALT 19 Units/L (0-55) 06/18/17 15:00 Alkaline Phosphatase 110 Units/L (38-126) 06/18/17 15:00 Serum Total Protein 7.8 g/dL (6.0-8.3) 06/18/17 15:00 Albumin 3.4 g/dL (3.5-5.0) L 06/18/17 15:00 Globulin 4.4 g/dL (2.4-3.5) H 06/18/17 15:00 Albumin/Globulin Ratio 0.8 (1.1-2.2) L 06/18/17 15:00 Lipase 13 Units/L (8-78) 06/18/17 15:00 Serum , Qual Negative (Negative) D 06/18/17 15:00 Urine Color Yellow (Yellow) 06/18/17 15:00 Urine Clarity Clear (Clear) 06/18/17 15:00 Urine pH 8.0 pH Units (5.0-8.0) 06/18/17 15:00 Ur Specific [place] 1.021 (1.010-1.025) 06/18/17 15:00 Urine Protein 30 mg/dL (Neg-Trace) H 06/18/17 15:00 Urine Glucose (UA) Normal mg/dL (Normal) 06/18/17 15:00 Urine Ketones Negative mg/dL (Negative) 06/18/17 15:00 Urine Blood Negative (Negative) 06/18/17 15:00 Urine Nitrite Negative (Negative) 06/18/17 15:00 Urine Bilirubin Negative (Negative) 06/18/17 15:00 Urine Urobilinogen Normal mg/dL (Normal) 06/18/17 15:00 Ur Leukocyte Esterase Negative (Negative) 06/18/17 15:00 Urine Microscopic RBC 3-5 per hpf (0-3) H 06/18/17 15:00 Urine Microscopic WBC 0-3 per hpf (0-3) 06/18/17 15:00 Ur Squamous Epith Cells Many per lpf (None-Few) H 06/18/17 15:00 Urine Bacteria None Seen per hpf (None-Few) 06/18/17 15:00 Hyaline Casts None Seen per lpf (None-Few) 06/18/17 15:00 Ur Culture Indicated? NO (NO) 06/18/17 15:00 Result diagrams: 06/18/17 15:00 06/18/17 15:00 Lab Results 06/18/17 06/18/17 06/18/17 Range/Units 15:00 15:00 15:00 WBC 11.6 H (4.3-11.1) K/mcL RBC 5.23 H (3.82-4.97) M/mcL Hgb 14.3 (11.5-15.4) g/dL Hct 43.4 (35.3-44.9) % MCV 83.0 (83.0-100.0) fL MCH 27.3 L (28.0-33.3) pg MCHC 32.9 (31.6-35.5) g/dL RDW 13.3 (11.5-14.5) % Plt Count 295 (140-400) K/mcL MPV 9.5 (9.4-12.4) fL Immature Gran % 0.6 (0-4) % Seg Neutrophils % 73.6 % Lymphocytes % 21.4 % Monocytes % 3.4 % Eosinophils % 0.7 % Basophils % 0.3 % Neutrophils # 8.6 (1.6-8.9) K/mcL Lymphocytes # 2.5 (0.6-4.6) K/mcL Monocytes # 0.4 (0.0-1.3) K/mcL Eosinophils # 0.1 (0.0-0.6) K/mcL Basophils # 0.0 (0.0-0.2) K/mcL Sodium 136 (136-145) mEq/L Potassium 3.0 L (3.5-4.5) mEq/L Chloride 100 (98-109) mEq/L Carbon Dioxide 26 (19-29) mEq/L BUN 15 (7-20) mg/dL Creatinine 0.84 (0.57-1.11) mg/dL Est GFR ( Amer) > 60 (> 60) Est GFR (Non-Af Amer) > 60 (> 60) BUN/Creatinine Ratio 18 (6-26) Glucose 154 H (70-99) mg/dL Calculated Osmolality 286 (280-300) Calcium 9.3 (8.6-10.8) mg/dL Total Bilirubin 0.4 (0.2-1.2) mg/dL Direct Bilirubin 0.2 (0.0-0.5) mg/dL Indirect Bilirubin 0.2 (0.0-1.2) mg/dL AST 15 (5-34) Units/L ALT 19 (0-55) Units/L Alkaline Phosphatase 110 (38-126) Units/L Serum Total Protein 7.8 (6.0-8.3) g/dL Albumin 3.4 L (3.5-5.0) g/dL Globulin 4.4 H (2.4-3.5) g/dL Albumin/Globulin Ratio 0.8 L (1.1-2.2) Lipase 13 (8-78) Units/L Serum , Qual (Negative) Urine Color Yellow (Yellow) Urine Clarity Clear (Clear) Urine pH 8.0 (5.0-8.0) pH Units Ur Specific [place] 1.021 (1.010-1.025) Urine Protein 30 H (Neg-Trace) mg/dL Urine Glucose (UA) Normal (Normal) mg/dL Urine Ketones Negative (Negative) mg/dL Urine Blood Negative (Negative) Urine Nitrite Negative (Negative) Urine Bilirubin Negative (Negative) Urine Urobilinogen Normal (Normal) mg/dL Ur Leukocyte Esterase Negative (Negative) Urine Microscopic RBC 3-5 H (0-3) per hpf Urine Microscopic WBC 0-3 (0-3) per hpf Ur Squamous Epith Cells Many H (None-Few) per lpf Urine Bacteria None Seen (None-Few) per hpf Hyaline Casts None Seen (None-Few) per lpf Ur Culture Indicated? NO (NO) 06/18/17 Range/Units 15:00 WBC (4.3-11.1) K/mcL RBC (3.82-4.97) M/mcL Hgb (11.5-15.4) g/dL Hct (35.3-44.9) % MCV (83.0-100.0) fL MCH (28.0-33.3) pg MCHC (31.6-35.5) g/dL RDW (11.5-14.5) % Plt Count (140-400) K/mcL MPV (9.4-12.4) fL Immature Gran % (0-4) % Seg Neutrophils % % Lymphocytes % % Monocytes % % Eosinophils % % Basophils % % Neutrophils # (1.6-8.9) K/mcL Lymphocytes # (0.6-4.6) K/mcL Monocytes # (0.0-1.3) K/mcL Eosinophils # (0.0-0.6) K/mcL Basophils # (0.0-0.2) K/mcL Sodium (136-145) mEq/L Potassium (3.5-4.5) mEq/L Chloride (98-109) mEq/L Carbon Dioxide (19-29) mEq/L BUN (7-20) mg/dL Creatinine (0.57-1.11) mg/dL Est GFR ( Amer) (> 60) Est GFR (Non-Af Amer) (> 60) BUN/Creatinine Ratio (6-26) Glucose (70-99) mg/dL Calculated Osmolality (280-300) Calcium (8.6-10.8) mg/dL Total Bilirubin (0.2-1.2) mg/dL Direct Bilirubin (0.0-0.5) mg/dL Indirect Bilirubin (0.0-1.2) mg/dL AST (5-34) Units/L ALT (0-55) Units/L Alkaline Phosphatase (38-126) Units/L Serum Total Protein (6.0-8.3) g/dL Albumin (3.5-5.0) g/dL Globulin (2.4-3.5) g/dL Albumin/Globulin Ratio (1.1-2.2) Lipase (8-78) Units/L Serum , Qual Negative D (Negative) Urine Color (Yellow) Urine Clarity (Clear) Urine pH (5.0-8.0) pH Units Ur Specific [place] (1.010-1.025) Urine Protein (Neg-Trace) mg/dL Urine Glucose (UA) (Normal) mg/dL Urine Ketones (Negative) mg/dL Urine Blood (Negative) Urine Nitrite (Negative) Urine Bilirubin (Negative) Urine Urobilinogen (Normal) mg/dL Ur Leukocyte Esterase (Negative) Urine Microscopic RBC (0-3) per hpf Urine Microscopic WBC (0-3) per hpf Ur Squamous Epith Cells (None-Few) per lpf Urine Bacteria (None-Few) per hpf Hyaline Casts (None-Few) per lpf Ur Culture Indicated? (NO) - Radiology Data Radiology results reviewed: Yes I reviewed the patient's radiology results. Abdomen/Pelvis CT 06/18/17 15:49 IMPRESSION: 1. No acute findings within the abdomen. 2. No acute findings within the pelvis. D/ / 06/18/2017 16:42:59 Kiel Soliman MD / [place] Interpreting Provider: Kiel Soliman MD
--- NOTE | 2017-06-18 16:14 | Emergency Department Note ---
START Narrative - START START: I examined this patient and my medical decision-making was reviewed with the Resident Physician. I agree with the documented findings, disposition and treatment plan as described except to the extent set forth below. 46 year old denise presents to the ED with compainst of abdominal pain and vomitting and most recently was admitted to our facility to pneumoina and incidental inding of CBD diltation, she was scheduled for GI consult although she left before the consult could happen because she felt better. We will re do abdominal labs, imaging and then consult GI before we make the dispsiition for home vs admisisin.
[2017-06-18] MEDS ORDERED: Ketorolac 30 MG/ML VIAL IM ONE (16:17)
[2017-06-18] MEDS ORDERED: Ketorolac 15 MG/ML VIAL IVP ONE (16:27)
[2017-06-18] MEDS ORDERED: 0.9 % Sodium Chloride 1,000 ML IVC SCH (16:30)
[2017-06-18] MEDS ORDERED: Hyoscyamine SL 0.125 MG TAB.SUBL SL ONE (17:12)
[2017-06-18] MEDS ORDERED: Naloxone 0.4 MG/ML INJ IVP PRN (19:59)
[2017-06-18] MEDS ORDERED: Albuterol 2.5 MG/3 ML NEBULIZER IH PRN (20:05)
[2017-06-18] MEDS: *HR* Morphine 2 MG/ML SYRINGE IVP PRN (20:25)
[2017-06-18] MEDS: Ondansetron 4 MG/2 ML VIAL IVP PRN (20:31)
[2017-06-18] MEDS ORDERED: 0.9 % Sodium Chloride w KCl 20 MEQ/1,000 ML MLS IVC SCH (20:45)
--- NOTE | 2017-06-18 20:56 | Internal Med History&Physical ---
<Sherrell Johnston - Last Filed: 06/18/17 21:04> Date of Encounter: 06/18/17 Time of Encounter: 19:30 Assessment and Plan (1) Abdominal pain Current visit: Yes Status: Acute 1 patient had a right salpingo-oophorectomy 06/03/2017. Since this time she has been experiencing continued abdominal pain as well as nausea and vomiting and constipation. She has not been able to eat and/or take her medications. States she has lost proximally 14 pounds. She was admitted to this facility on the at that time ultrasound was completed which did reveal sludge within the gallbladder with no call by wall thickening dilated common bile duct without evidence of intrahepatic biliary ductal dilatation. Lab work was obtained AST is 52 teas 19 lipase was 13 total bili 0.4. We will obtain a HIDA scan in the a.m. 2 did consult surgery spoke with Dr. Ruiz who will see patient in the a.m. 3 we will continue with nothing by mouth status for now 4 we will give IV fluids overnight 5 continue with morphine IV as needed for pain and Zofran for nausea 6 we will consult OB for follow-up Qualifiers: Abdominal location: right upper quadrant Qualified Code(s): R10.11 - Right upper quadrant pain (2) Hypokalemia Current visit: Yes Status: Acute Patient's potassium was 3 she has been experiencing nausea and vomiting for the past few weeks. She was replaced in the ER we will continue to monitor potassium 2 continue IV fluids with 20 KCl Continuous cardiac monitoring (3) COPD (chronic obstructive pulmonary disease) Current visit: No Status: Acute Presently stable we will continue with bronchodilators and oxygen as needed Encouraged patient not to smoke Qualifiers: COPD type: unspecified COPD Qualified Code(s): J44.9 - Chronic obstructive pulmonary disease, unspecified (4) Tobacco dependence Current visit: No Status: Acute Patient states that she has cut down smoking the past few weeks. Encouraged her to stop smoking offered nicotine patch which she declined at this time (5) DVT prophylaxis Current visit: No Status: Acute Heparin subcutaneous Internal Medicine - H&P: HPI Chief complaint: abd pain Admitted From: Emergency Dept Plans for Post Hospital Care: Home History of present illness: Ms. Harrington is a 46 year old female COPD panic disorder s/p laparoscopic right salpingo-oophorectomy 06/03/[address] Bhat. The patient underwent a right salpingo-oophorectomy per Dr. Bhat on 06/03 2017. Since that time patient has been experiencing abdominal pain nausea vomiting she has not been able to eat or take medication. She has had a 14 pound weight loss as well as she has had only 1 bowel movement since operation. She did present to the hospital on the and was admitted at that time was treated for pneumonia. Right upper quadrant ultrasound was completed which demonstrated biliary sludge and CBD dilatation. She was advised to follow-up as outpatient and was discharged home. She presents back to the ER today with continued abdominal pain nausea vomiting. She states that the vomiting occurs after she eats describes it as mostly yellow and filmy. Pain is intermittent and worse when she eats. She denies any fevers chills. Lab work did reveal hypokalemia potassium at 3.0 AST was 15 AST was 19 total bili 0.4 lipase was 13 test was negative urine was negative white count was 11.6. She was admitted for further workup and evaluation. Presently the patient continues to complain of right upper quadrant plane. Right upper quadrant is tender upon palpation. Abdomen is soft lungs sounds are clear heart sounds regular S1 and S2 with no rubs clicks, murmurs. No pedal edema noted. She is hemodynamically stable at this time. I did review his case with Dr. Hoyos who agrees with plan a Past Med Surg Social Fam HX - Past Medical History Medical history: fibromyalgia, other Psychiatric history: panic disorder - Past Surgical History Surgical History: - Social History Smoking Status: Former smoker Smokeless Tobacco Status: No Alcohol use: none Drug use: none - Family History Mother Adopted: [place]: Erlinda Armenta Family Member Ethnicity: Non- Living Status: Age at : 84 Cause of : Pneumonia Hx Family Cardiac Disorders: Yes Hx Family Respiratory Disorders: No Hx Family Cancer: No Hx Family GI Disorders: No Hx Family Genitourinary Disorders: No Hx Family Endocrine Disorder: No Hx Family Musculoskeletal Disorders: No Hx Family Neuromuscular Disorders: No Hx Family Neurologic Disorders: No Hx Family HEENT Disorders: No Hx Family Autoimmune Disorders: No Hx Family Reproductive Disorders: No Hx Family Psychosocial Disorders: No Hx Family Medical Disorders: No Father Adopted: [place]: Adarsh Armenta Family Member Ethnicity: Non- Living Status: Age at : 72 Cause of : [place] Hx Family Cardiac Disorders: Yes Hx Family Respiratory Disorders: No Hx Family Cancer: No Hx Family GI Disorders: No Hx Family Genitourinary Disorders: No Hx Family Endocrine Disorder: No Hx Family Musculoskeletal Disorders: No Hx Family Neuromuscular Disorders: No Hx Family Neurologic Disorders: No Hx Family HEENT Disorders: No Hx Family Autoimmune Disorders: No Hx Family Reproductive Disorders: No Hx Family Psychosocial Disorders: No Hx Family Medical Disorders: No Internal Medicine - H&P: Meds Albuterol Sulfate [Albuterol Inhaler] 2 puff IH Q4H PRN 06/13/17 [History] ALPRAZolam [Xanax 0.5 MG Tablet] 0.5 mg PO DAILY PRN #10 tablet 06/14/17 [Rx] Famotidine [Pepcid] 20 mg PO BID #30 tablet 06/14/17 [Rx] Paroxetine [Paxil] 20 mg PO DAILY #30 tablet 06/14/17 [Rx] Promethazine [Phenergan] 25 mg PO Q6HR PRN #30 tablet 06/14/17 [Rx] 3 Allergy/AdvReac Type Severity Reaction Status Date / Time No Known Allergies Allergy Verified 06/03/17 09:19 All Systems PM: A 10-system review of systems was performed and is negative for pertinent findings except as documented above in the HPI. - Constitutional Constitutional: anorexia, weight loss - EENT Eyes: no change in vision, no discharge, no pain, no photophobia Nose, mouth and throat: no dysphagia, no nasal discharge, no neck pain, no sore throat - Cardiovascular Cardiovascular ROS IM: no chest pain, no diaphoresis, no dyspnea, no lightheadedness, no palpitations, no syncope - Respiratory Respiratory: no cough, no dyspnea, no wheezing, no excessive phlegm production - Gastrointestinal Gastrointestinal: abdominal pain, constipation, nausea, vomiting - Genitourinary Genitourinary: no change in urinary stream, no dysuria, no flank pain, no hematuria - Musculoskeletal Musculoskeletal ROS IM: no numbness, no tingling - Integumentary Integumentary IM: no rash, no unusual bruising - Neurological Neurological ROS: no confusion, no convulsions, no focal weakness, no numbness, no tingling, no tremor(s) - Constitutional Vitals: Temp Pulse Resp BP Pulse Ox 98.3 F 70 17 105/65 93 06/18/17 19:06 06/18/17 19:06 06/18/17 19:06 06/18/17 19:06 06/18/17 19:06 General appearance: Present: A&O X 3, answers questions appropriately - Head Head exam: Present: atraumatic, normocephalic - Eye Eye exam: Present: PERRL, conjuntiva pink, sclera anicteric Pupils: Present: PERRL - Neck Neck exam general surgery: Present: supple, trachea midline. Absent: lymphadenopathy - Respiratory Respiratory exam: Present: CTAB. Absent: accessory muscle use, rales, rhonchi, wheezes - Cardiovascular Cardiovascular exam: Present: RRR, +S1, +S2. Absent: diastolic murmur, gallop, rubs, systolic murmur - GI/Abdominal GI/Abdominal exam: Present: normal bowel sounds, soft, tenderness, no peritoneal signs. Absent: distended - Extremities Exam Extremities exam: Present: warm, radial pulses palpable and symmetrical. Absent : calf tenderness, cyanotic, pedal edema - Neurological Exam Neurological exam: Present: CN II-XII intact, oriented X3, no focal deficits. Absent: pronater drift, facial droop, speech deficit - Skin Skin exam: Present: dry, intact Internal Med - H&P Results - Labs CBC & Chem 7: 06/18/17 15:00 06/18/17 15:00 - Diagnostic Studies Other Images Additional comments: Abdomen/Pelvis CT 06/18/17 15:49 IMPRESSION: 1. No acute findings within the abdomen. 2. No acute findings within the pelvis. D/ / 06/18/2017 16:42:59 Kiel Soliman MD / [place] Interpreting Provider: Kiel Soliman MD <Viola Hoyos - Last Filed: 06/18/17 21:18> Date of Encounter: 06/18/17 Internal Medicine - H&P: HPI History of present illness: Ms. Harrington is a 46 year old female All Systems PM: A 10-system review of systems was performed and is negative for pertinent findings except as documented above in the HPI. - Constitutional Vitals: Temp Pulse Resp BP Pulse Ox 98.3 F 70 17 105/65 93 06/18/17 19:06 06/18/17 19:06 06/18/17 19:06 06/18/17 19:06 06/18/17 19:06 Internal Med - H&P Results - Labs CBC & Chem 7: 06/18/17 15:00 06/18/17 15:00 - Attending Attestation I have personally performed a face to face evaluation on this patient. I have reviewed and agree with the care plan. History and Exam by me shows: 38-year-old female with ovarian surgery, right cyst removal by Dr. Bhat on June 03. 2 days after developed emesis and abdominal pain and has been treated with Percocets 5. Since ovarian surgery. She has been having anorexia related to emesis. No diarrhea. Recurrent visits to the ED with right upper quadrant ultrasound on June 13 with biliary sludging, common bile duct L dilatation. She had only 1 bowel movement since surgery. Lost 13 pounds due to anorexia. Today presents for right upper quadrant pain described as sharp associated with emesis which makes it worse, rated 10 out of 10 ROS 14 point review of systems reviewed as best as possible given presentation. Pertinent positive or negative as per HPI or otherwise reviewed as negative General - AAO x 3 Psych - Appropriate affect/speech. No agitation Eyes - [place]. Eye lids intact. No scleral icterus Heart - Sinus. RRR. S1 and S2 present. No added HS/murmurs appreciated. No elevated JVD appreciated. Lung - Adequate air entry b/l, No crackles/wheezes appreciated GI - right upper quadrant pain. Soft, no guarding. No hepatosplenomegaly/ ascites. BS+ - No CVA/suprapubic tenderness or palpable bladder distension Skin - Intact. No rash/petechiae/ecchymosis. Warm extremities Assessment and plan Consult Dr. Bhat gynecology given within 30 days of surgery Consult surgery to evaluate for biliary dysfunction. HIDA scan in the morning IV fluids Anti-constipated with senna, Colace, Miralax For further management pending hospital course
[2017-06-18] MEDS: Sennosides 8.6 MG TABLET PO SCH (21:00)
--- NOTE | 2017-06-18 21:33 | OB/GYN Consult Note ---
Date of Encounter: 06/18/17 Time of Encounter: 21:30 Assessment and Plan (1) History of right oophorectomy Current Visit: Yes Status: Acute Pt reports the pelvic pain that she was having before the surgery has resolved. She denies any pelvic pain, bleeding, incisional problems, vaginal discharge or any other [employer] complaints. She states the pain is in her upper abdomen and is completely different than the pain she was having before her surgery. We will sign off at this time. (2) Abdominal pain Current Visit: Yes Status: Acute Qualifiers: Abdominal location: right upper quadrant Qualified Code(s): R10.11 - Right upper quadrant pain (3) Nausea & vomiting Current Visit: No Status: Acute Qualifiers: Vomiting type: unspecified Vomiting Intractability: non-intractable Qualified Code(s): R11.2 - Nausea with vomiting, unspecified History of Present Illness Consult date: 06/18/17 Reason for consult: other (oophorectomy on 06/03/17) Past Med Surg Social Fam HX - Past Medical History Medical history: fibromyalgia, other Psychiatric history: panic disorder - Past Surgical History Surgical History: - Social History Smoking Status: Former smoker Smokeless Tobacco Status: No Alcohol use: none Drug use: none - Family History Mother Adopted: [place]: Erlinda Armenta Family Member Ethnicity: Non- Living Status: Age at : 84 Cause of : Pneumonia Hx Family Cardiac Disorders: Yes Hx Family Respiratory Disorders: No Hx Family Cancer: No Hx Family GI Disorders: No Hx Family Genitourinary Disorders: No Hx Family Endocrine Disorder: No Hx Family Musculoskeletal Disorders: No Hx Family Neuromuscular Disorders: No Hx Family Neurologic Disorders: No Hx Family HEENT Disorders: No Hx Family Autoimmune Disorders: No Hx Family Reproductive Disorders: No Hx Family Psychosocial Disorders: No Hx Family Medical Disorders: No Father Adopted: [place]: Adarsh Armenta Family Member Ethnicity: Non- Living Status: Age at : 72 Cause of : [place] Hx Family Cardiac Disorders: Yes Hx Family Respiratory Disorders: No Hx Family Cancer: No Hx Family GI Disorders: No Hx Family Genitourinary Disorders: No Hx Family Endocrine Disorder: No Hx Family Musculoskeletal Disorders: No Hx Family Neuromuscular Disorders: No Hx Family Neurologic Disorders: No Hx Family HEENT Disorders: No Hx Family Autoimmune Disorders: No Hx Family Reproductive Disorders: No Hx Family Psychosocial Disorders: No Hx Family Medical Disorders: No Medications and Allergies Albuterol Sulfate [Albuterol Inhaler] 2 puff IH Q4H PRN 06/13/17 [History] ALPRAZolam [Xanax 0.5 MG Tablet] 0.5 mg PO DAILY PRN #10 tablet 06/14/17 [Rx] Famotidine [Pepcid] 20 mg PO BID #30 tablet 06/14/17 [Rx] Paroxetine [Paxil] 20 mg PO DAILY #30 tablet 06/14/17 [Rx] Promethazine [Phenergan] 25 mg PO Q6HR PRN #30 tablet 06/14/17 [Rx] 3 Allergy/AdvReac Type Severity Reaction Status Date / Time No Known Allergies Allergy Verified 06/03/17 09:19 Review of Systems Gastrointestinal: abdominal pain (upper abdomen), nausea, vomiting (cannot keep anything down) Genitourinary Female: no abnormal vaginal bleeding, no genital lesions, no genital pruritis, no pelvic pain, no vaginal discharge, no vaginal odor, no vaginal pruritis Menstruation: post menopausal (since 2014) Integumentary: other (surgical incisions x3 well approximated without redness or warmth) Exam - Vital Signs Vital signs: Initial Vital Signs Temp Pulse Resp BP Pulse Ox 98.9 F 83 16 128/77 94 06/18/17 14:28 06/18/17 14:28 06/18/17 14:28 06/18/17 14:28 06/18/17 14:28 - Constitutional Constitutional: well developed, well nourished, no acute distress, average body habitus - Abdomen Abdomen: Present: non tender (non-tender across LQ) Results Result Diagrams: 06/18/17 15:00 06/18/17 15:00 Abnormal lab results WBC 11.6 K/mcL (4.3-11.1) H 06/18/17 15:00 RBC 5.23 M/mcL (3.82-4.97) H 06/18/17 15:00 MCH 27.3 pg (28.0-33.3) L 06/18/17 15:00 Potassium 3.0 mEq/L (3.5-4.5) L 06/18/17 15:00 Glucose 154 mg/dL (70-99) H 06/18/17 15:00 Albumin 3.4 g/dL (3.5-5.0) L 06/18/17 15:00 Globulin 4.4 g/dL (2.4-3.5) H 06/18/17 15:00 Albumin/Globulin Ratio 0.8 (1.1-2.2) L 06/18/17 15:00 Urine Protein 30 mg/dL (Neg-Trace) H 06/18/17 15:00 Urine Microscopic RBC 3-5 per hpf (0-3) H 06/18/17 15:00 Ur Squamous Epith Cells Many per lpf (None-Few) H 06/18/17 15:00 All other labs normal. CT scan - abdomen: report reviewed (no abnormal findings) CT scan - pelvis: report reviewed (no abnormal findings) Consult Discharge Plan - Plan Referrals: NONE,PCP [Primary Care Provider] -
[2017-06-19] MEDS: *HR* Morphine 2 MG/ML SYRINGE IVP PRN ×5 (00:49→21:06)
[2017-06-19 04:59] LABS: Basophils # 0.1 K/mcL (0.0-0.2); Basophils % 0.5 %; Eosinophils # 0.2 K/mcL (0.0-0.6); Eosinophils % 2.3 %; Hematocrit 39.6 % (35.3-44.9); Hemoglobin 12.9 g/dL (11.5-15.4); Immature Granulocytes % 0.5 % (0-4); Lymphocytes # 4.1 K/mcL (0.6-4.6); Lymphocytes % 39.6 %; Mean Corpuscular HGB Conc 32.6 g/dL (31.6-35.5); Mean Corpuscular Hemoglobin 27.9 pg (28.0-33.3); Mean Corpuscular Volume 85.5 fL (83.0-100.0); Mean Platelet Volume 9.7 fL (9.4-12.4); Monocytes # 0.8 K/mcL (0.0-1.3); Monocytes % 7.4 %; Neutrophils # 5.1 K/mcL (1.6-8.9); Platelet Count 249 K/mcL (140-400); Red Blood Count 4.63 M/mcL (3.82-4.97); Red Cell Distribution Width 13.5 % (11.5-14.5); Segmented Neutrophils % 49.7 %
[2017-06-19 05:11] LABS: BUN/Creatinine Ratio 18 (6-26); Blood Urea Nitrogen 15 mg/dL (7-20); Calcium 8.5 mg/dL (8.6-10.8); Carbon Dioxide 23 mEq/L (19-29); Chloride 109 mEq/L (98-109); Glucose 85 mg/dL (70-99); Osmolality,Calculated 288 (280-300); Sodium 139 mEq/L (136-145); eGFR For African Americans > 60 (> 60); eGFR For Non-African Americans > 60 (> 60)
[2017-06-19] MEDS: Pantoprazole 40 MG VIAL IVP SCH (08:05)
[2017-06-19] MEDS: Sennosides 8.6 MG TABLET PO SCH (08:05)
[2017-06-19] MEDS: *HR* Enoxaparin 40 MG/0.4 ML SYRINGE SQ SCH (08:05)
[2017-06-19] MEDS: Ondansetron 4 MG/2 ML VIAL IVP PRN (10:38)
--- NOTE | 2017-06-19 11:12 | General Surgery Progress Note ---
Date of Encounter: 06/19/17 Time of Encounter: 11:25 Objective Vital Signs - Last 8 Hours Temp Pulse Resp BP Pulse Ox 06/19/17 07:26 97.7 F 57 14 146/84 97 06/19/17 03:49 98.3 F 59 15 110/56 95 Intake and Output 06/18/17 06/19/17 06/19/17 23:59 07:59 15:59 Intake Total 0 / 0 0 / 0 Output Total 0 / 0 200 / 200 Balance 0 / 0 -200 / -200 Intake: Oral 0 / 0 0 / 0 Output: Urine 0 / 0 200 / 200 Other: Meal NPO Weight 58.967 kg 76.7 kg Blood Glucose* 95 Patient Weight 06/19/17 23:59 Weight 76.7 kg - Labs 06/19/17 04:34 06/19/17 04:34 Diabetes panel 06/19/17 Range/Units 04:34 Sodium 139 (136-145) mEq/L Potassium 4.0 D (3.5-4.5) mEq/L Chloride 109 (98-109) mEq/L Carbon Dioxide 23 (19-29) mEq/L BUN 15 (7-20) mg/dL Creatinine 0.83 (0.57-1.11) mg/dL Glucose 85 (70-99) mg/dL Calcium 8.5 L (8.6-10.8) mg/dL Calcium panel 06/19/17 Range/Units 04:34 Calcium 8.5 L (8.6-10.8) mg/dL Pituitary panel 06/19/17 Range/Units 04:34 Sodium 139 (136-145) mEq/L Potassium 4.0 D (3.5-4.5) mEq/L Chloride 109 (98-109) mEq/L Carbon Dioxide 23 (19-29) mEq/L BUN 15 (7-20) mg/dL Creatinine 0.83 (0.57-1.11) mg/dL Glucose 85 (70-99) mg/dL Calcium 8.5 L (8.6-10.8) mg/dL Adrenal panel 06/19/17 Range/Units 04:34 Sodium 139 (136-145) mEq/L Potassium 4.0 D (3.5-4.5) mEq/L Chloride 109 (98-109) mEq/L Carbon Dioxide 23 (19-29) mEq/L BUN 15 (7-20) mg/dL Creatinine 0.83 (0.57-1.11) mg/dL Glucose 85 (70-99) mg/dL Calcium 8.5 L (8.6-10.8) mg/dL Consult Discharge Plan - Plan Referrals: NONE,PCP [Primary Care Provider] -
--- NOTE | 2017-06-19 11:31 | Internal Medicine Consult Note ---
Addendum entered and electronically signed by Shannan Ariza DO 06/20/17 11:52 : Internal medicine consult note was entered in error as this should be a general surgery consult note. See general surgery consult note. Original Note: <Shannan Ariza - Last Filed: 06/19/17 18:09> Date of Encounter: 06/19/17 Time of Encounter: 11:26 - Assessment and Plan (1) Abdominal pain Status: Acute Assessment and plan: Patient has had worsening epigastric pain, anorexia, nausea or vomiting since 3 days post right salpingo-oophorectomy 06/03. Pain radiates to her back with episodic worsening by evening drinking. Physical exam does show a positive Segura's sign but pain pattern is along the costal margin wrapping around to her back. Right upper quadrant at last visit showed biliary sludge and CBD dilation. HIDA scan showed normal gallbladder function with EF of 83%. Surgery recommends clear liquid diet, Reglan 20mg Q8hrs for 36 hrs, and cdiff culture. Plan: - HIDA completed - normal - Reglan 20mg Q8hrs for 36 hrs - cdiff culture - clear liquid diet Qualifiers: Abdominal location: generalized Qualified Code(s): R10.84 - Generalized abdominal pain (2) History of right oophorectomy Status: Acute Assessment and plan: Surgery occurred 06/03. Incisions healing well. (3) Hypokalemia Status: Resolved Assessment and plan: K originally 3.0, now 4.0. Resolved. Internal Medicine - CN: HPI - Data of Consult Requesting Physician: Yariel Andres - Consult Narrative History of present illness: Ms. Harrington is a 46 year old female with a past surgical history of right salpingo-oophorectomy on 9 over 08/[address] Bhat secondary to right complex ovarian cysts patient's only other surgery is a . Patient presented with worsening epigastric pain that radiates to her back and to her RUQ that is episodic and worsened by food or drink. Patient has associated nausea and vomiting and has been unable to keep food or liquid down. Admits to only having 2 bowel movements since surgery but also has reported diarrhea but normally only has a bowel movement once a week. Patient denies dysuria, hematemesis, melena. Patient was previously admitted on 06/13 and had a right upper quadrant ultrasound that showed biliary sagittal and CBD dilation. HIDA scan was obtained this morning which showed normal gallbladder function. Past Med Surg Social Fam HX - Past Medical History Medical history: fibromyalgia, other Psychiatric history: panic disorder - Past Surgical History Surgical History: - Social History Smoking Status: Former smoker Smokeless Tobacco Status: No Alcohol use: none Drug use: none - Family History Mother Adopted: [place]: Erlinda Armenta Family Member Ethnicity: Non- Living Status: Age at : 84 Cause of : Pneumonia Hx Family Cardiac Disorders: Yes Hx Family Respiratory Disorders: No Hx Family Cancer: No Hx Family GI Disorders: No Hx Family Genitourinary Disorders: No Hx Family Endocrine Disorder: No Hx Family Musculoskeletal Disorders: No Hx Family Neuromuscular Disorders: No Hx Family Neurologic Disorders: No Hx Family HEENT Disorders: No Hx Family Autoimmune Disorders: No Hx Family Reproductive Disorders: No Hx Family Psychosocial Disorders: No Hx Family Medical Disorders: No Father Adopted: [place]: Adarsh Armenta Family Member Ethnicity: Non- Living Status: Age at : 72 Cause of : [place] Hx Family Cardiac Disorders: Yes Hx Family Respiratory Disorders: No Hx Family Cancer: No Hx Family GI Disorders: No Hx Family Genitourinary Disorders: No Hx Family Endocrine Disorder: No Hx Family Musculoskeletal Disorders: No Hx Family Neuromuscular Disorders: No Hx Family Neurologic Disorders: No Hx Family HEENT Disorders: No Hx Family Autoimmune Disorders: No Hx Family Reproductive Disorders: No Hx Family Psychosocial Disorders: No Hx Family Medical Disorders: No Internal Medicine - CN: Meds Albuterol Sulfate [Albuterol Inhaler] 2 puff IH Q4H PRN 06/13/17 [History] ALPRAZolam [Xanax 0.5 MG Tablet] 0.5 mg PO DAILY PRN #10 tablet 06/14/17 [Rx] Famotidine [Pepcid] 20 mg PO BID #30 tablet 06/14/17 [Rx] Paroxetine [Paxil] 20 mg PO DAILY #30 tablet 06/14/17 [Rx] Promethazine [Phenergan] 25 mg PO Q6HR PRN #30 tablet 06/14/17 [Rx] OxyCODONE Immed Rel [Roxicodone 5 MG] 5 mg PO Q12HR PRN #7 tablet 06/21/17 [Rx] 3 Allergy/AdvReac Type Severity Reaction Status Date / Time No Known Allergies Allergy Verified 06/03/17 09:19 Internal Medicine - CN: Exam - Constitutional Vitals: Temp Pulse Resp BP Pulse Ox 98.1 F 61 14 115/72 94 06/19/17 11:06/19/17 11:06/19/17 11:09 06/19/17 11:06/19/17 11:09 - Head Head exam: Present: atraumatic, normal inspection - Other Additional findings: Constitutional: Alert, in no acute distress, well nourished, well developed. Head: Normocephalic, atraumatic, normal contour and symmetric, no masses, lesions or scars Heart: Normal, regular rate and rhythm, no murmurs Lungs: Clear to auscultation, no wheezes, rales, or rhonchi Abdomen: tender in epigastric region but more tender at the costophrenic margin at the RUQ, + segura's sign, Soft, nondistended, and no masses palpable, bowel sounds present and normal, no guarding or rigidity. Extremities: No clubbing, cyanosis, or edema, radial pulse +2/4, capillary refill <2sec. Skin: Skin warm and dry, no lesions, no rashes, no jaundice Neurologic: Cranial nerves II through XII grossly intact, no focal deficits, strength within normal limits in all extremities Psych: Cooperative with exam, good eye contact, cognitive function intact, judgment good insight good, speech clear, thought process logical, and goal directed Incisions: laproscopic incisions healing well without signs of infection Internal Medicine - CN: Reslt - Labs CBC & Chem 7: 06/19/17 04:34 06/19/17 04:34 Labs: Short CBC 06/19/17 Range/Units 04:34 WBC 10.2 (4.3-11.1) K/mcL Hgb 12.9 (11.5-15.4) g/dL Hct 39.6 (35.3-44.9) % Plt Count 249 (140-400) K/mcL Neutrophils # 5.1 (1.6-8.9) K/mcL BMP 06/19/17 04:34 Sodium 139 Potassium 4.0 D Chloride 109 Carbon Dioxide 23 BUN 15 Creatinine 0.83 Glucose 85 Calcium 8.5 L - Impressions Impressions Liver Scan Nuclear Medicine 06/19/17 08:00 IMPRESSION: No scintigraphic findings of acute or chronic cholecystitis. D/ / Porfirio Silver MD / Porfirio Silver MD Interpreting Provider: Porfirio Silver MD Consult Discharge Plan - Plan Instructions: Hypokalemia (DC), Acute Abdominal Pain (DC) Referrals: NONE,PCP [Primary Care Provider] - Prescriptions: OxyCODONE Immed Rel [Roxicodone 5 MG] 5 mg PO Q12HR PRN #7 tablet PRN Reason: Pain <Sara,Truman T - Last Filed: 06/21/17 15:28> Date of Encounter: 06/19/17 Internal Medicine - CN: HPI - Data of Consult Requesting Physician: Yariel Andres - Consult Narrative History of present illness: Ms. Harrington is a 46 year old female Internal Medicine - CN: Exam - Constitutional Vitals: Temp Pulse Resp BP Pulse Ox 97.6 F 59 18 130/85 97 06/21/17 10:45 06/21/17 10:45 06/21/17 10:45 06/21/17 10:45 06/21/17 10:45 Internal Medicine - CN: Reslt - Labs CBC & Chem 7: 06/21/17 08:02 06/21/17 08:02 Labs: Short CBC 06/21/17 Range/Units 08:02 WBC 7.8 (4.3-11.1) K/mcL Hgb 12.8 (11.5-15.4) g/dL Hct 39.3 (35.3-44.9) % Plt Count 226 (140-400) K/mcL Neutrophils # 3.4 (1.6-8.9) K/mcL BMP 06/21/17 08:02 Sodium 140 Potassium 3.8 Chloride 105 Carbon Dioxide 27 BUN 9 Creatinine 0.89 Glucose 89 Calcium 8.9 Liver Function 06/21/17 Range/Units 08:02 Total Bilirubin 0.4 (0.2-1.2) mg/dL AST 59 H (5-34) Units/L ALT 67 H (0-55) Units/L Alkaline Phosphatase 92 (38-126) Units/L Albumin 3.0 L (3.5-5.0) g/dL - Attending Attestation I examined this patient and my medical decision-making was reviewed with the Resident Physician. I agree with the documented findings, disposition and treatment plan as described except to the extent set forth below. The patient is seen and evaluated with resident. Had a biliary scan shows normal gallbladder function. We will proceed with conservative management. Will be glad to follow along with you Truman Ruiz MD FACS
[2017-06-19] MEDS: Metoclopramide 20 MG in 0.9 % Sodium Chloride 50 ML IVPB SCH ×2 (16:55→23:04)
--- NOTE | 2017-06-19 18:00 | Internal Med Progress Note ---
Date of Encounter: 06/19/17 Time of Encounter: 10:00 - Assessment and plan (1) Abdominal pain Current Visit: Yes Status: Acute Assessment and plan: - s/p right salpingo-oophorectomy 06/03/2017 -CT of the abdomen/pelvis showed no acute findings. -HIDA scan showed no findings of acute/chronic cholecystitis with normal gallbladder ejection fraction. -Gen. surgery consulted and appreciate recommendations. Qualifiers: Abdominal location: generalized Qualified Code(s): R10.84 - Generalized abdominal pain (2) History of right oophorectomy Current Visit: Yes Status: Acute Assessment and plan: -SPECIAL PROCEDURES TECHNOLOGIST consulted but does not suspect abdominal pain due to oophorectomy. (3) Hypokalemia Current Visit: Yes Status: Resolved Assessment and plan: Will continue to monitor. (4) Anxiety disorder Current Visit: No Status: Acute Assessment and plan: -Continue home medications. Qualifiers: Anxiety disorder type: generalized anxiety disorder Qualified Code(s): F41.1 - Generalized anxiety disorder - Subjective Interval history: Patient complains of abdominal discomfort this morning. - Constitutional Vitals: Temp Pulse Resp BP Pulse Ox 98.3 F 60 16 104/55 95 06/19/17 15:01 06/19/17 15:01 06/19/17 15:01 06/19/17 15:01 06/19/17 15:01 General appearance: Present: A&O X 3, answers questions appropriately - Respiratory Respiratory exam: Present: CTAB. Absent: accessory muscle use, rales, rhonchi, wheezes - Cardiovascular Cardiovascular exam: Present: RRR, +S1, +S2. Absent: diastolic murmur, gallop, rubs, systolic murmur - GI/Abdominal GI/Abdominal exam: Present: normal bowel sounds, soft. Absent: distended, guarding, no peritoneal signs Internal Medicine: Result - Labs CBC & Chem 7: 06/19/17 04:34 06/19/17 04:34 Labs: Short CBC 06/19/17 Range/Units 04:34 WBC 10.2 (4.3-11.1) K/mcL Hgb 12.9 (11.5-15.4) g/dL Hct 39.6 (35.3-44.9) % Plt Count 249 (140-400) K/mcL Neutrophils # 5.1 (1.6-8.9) K/mcL BMP 06/19/17 04:34 Sodium 139 Potassium 4.0 D Chloride 109 Carbon Dioxide 23 BUN 15 Creatinine 0.83 Glucose 85 Calcium 8.5 L - Impressions Impressions Liver Scan Nuclear Medicine 06/19/17 08:00 IMPRESSION: No scintigraphic findings of acute or chronic cholecystitis. D/ / Porfirio Silver MD / Porfirio Silver MD Interpreting Provider: Porfirio Silver MD Consult Discharge Plan - Plan Referrals: NONE,PCP [Primary Care Provider] -
[2017-06-19] MEDS: ALPRAZolam 0.5 MG TABLET PO PRN (21:15)
[2017-06-20] MEDS: *HR* Morphine 2 MG/ML SYRINGE IVP PRN ×3 (01:51→10:31)
[2017-06-20] MEDS: *HR* Enoxaparin 40 MG/0.4 ML SYRINGE SQ SCH (06:20)
[2017-06-20] MEDS: Metoclopramide 20 MG in 0.9 % Sodium Chloride 50 ML IVPB SCH (06:20)
[2017-06-20 08:37] LABS: Basophils # 0.1 K/mcL (0.0-0.2); Basophils % 0.8 %; Eosinophils # 0.3 K/mcL (0.0-0.6); Eosinophils % 3.9 %; Hematocrit 39.3 % (35.3-44.9); Hemoglobin 12.5 g/dL (11.5-15.4); Immature Granulocytes % 0.3 % (0-4); Lymphocytes # 3.3 K/mcL (0.6-4.6); Lymphocytes % 41.2 %; Mean Corpuscular HGB Conc 31.8 g/dL (31.6-35.5); Mean Corpuscular Hemoglobin 27.7 pg (28.0-33.3); Mean Corpuscular Volume 87.1 fL (83.0-100.0); Mean Platelet Volume 9.5 fL (9.4-12.4); Monocytes # 0.7 K/mcL (0.0-1.3); Monocytes % 8.4 %; Neutrophils # 3.6 K/mcL (1.6-8.9); Platelet Count 221 K/mcL (140-400); Red Blood Count 4.51 M/mcL (3.82-4.97); Red Cell Distribution Width 13.2 % (11.5-14.5); Segmented Neutrophils % 45.4 %
[2017-06-20 08:41] LABS: BUN/Creatinine Ratio 17 (6-26); Blood Urea Nitrogen 14 mg/dL (7-20); Calcium 8.6 mg/dL (8.6-10.8); Carbon Dioxide 23 mEq/L (19-29); Chloride 107 mEq/L (98-109); Glucose 88 mg/dL (70-99); Osmolality,Calculated 286 (280-300); Potassium 3.8 mEq/L (3.5-4.5); Sodium 138 mEq/L (136-145); eGFR For African Americans > 60 (> 60); eGFR For Non-African Americans > 60 (> 60)
[2017-06-20] MEDS: Pantoprazole 40 MG VIAL IVP SCH (08:49)
--- NOTE | 2017-06-20 10:27 | General Surgery Progress Note ---
<Neela Ladd - Last Filed: 06/20/17 10:32> Date of Encounter: 06/20/17 Time of Encounter: 10:25 - Assessment and Plan (1) Abdominal pain Current Visit: Yes Status: Resolved Abdominal discomfort is resolved. Denies n/v. Hida scan was normal. 4 BMs today. Will stop Reglan C-diff negative No surgical intervention indicated at this time. Surgery will sign off at this time. Thank you for allowing us to participate in Mrs. Harrington's care. Please re-consult if further needs arise. Ok to advance diet as tolerated from a surgical perspective. Qualifiers: Abdominal location: generalized Qualified Code(s): R10.84 - Generalized abdominal pain Subjective Patient reports: no new complaints, feels better, tolerating liquids well, voiding w/o difficulty, flatus, bowel movement, afebrile Objective Vital Signs - Last 8 Hours Temp Pulse Resp BP Pulse Ox 06/20/17 06:36 98.2 F 55 14 104/66 93 06/20/17 03:33 98.2 F 59 16 98/57 94 Intake and Output 06/19/17 06/20/17 06/20/17 23:59 07:59 15:59 Intake Total 588 / 588 54 / 54 Output Total 0 / 0 Balance 588 / 588 54 / 54 Intake: IV Fluids 108 / 108 54 / 54 Reglan 20 MG In 0.9 % Sodium 108 / 108 54 / 54 Chloride 50 ML @ 108 mls/hr IVPB Q8H [facility] Rx#:[id number] Oral 480 / 480 Output: Urine 0 / 0 Other: Meal Dinner NPO Percent of Meal Consumed 100% # Voids 1 Weight 76.476 kg Patient Weight 06/20/17 23:59 Weight 76.476 kg - General physical appearance well nourished, no distress - Eyes normal ocular movement - ENT atraumatic, normocephalic - Neck Neck exam: no masses, no bruits, trachea midline, no venous distension - Respiratory normal expansion, normal respiratory effort, clear to auscultation - Cardiovascular Cardiovascular exam: Present: RRR - Abdomen Abdomen: Present: bowel sounds present, soft, non tender Hernia: none - Integumentary no rash, no growths - Neurologic CN 2-12 grossly intact - Musculoskeletal normal gait, normal posture - Psychiatric oriented to time, oriented to person, oriented to place, speech is normal, memory intact - Labs 06/20/17 08:16 06/20/17 08:16 Diabetes panel 06/20/17 Range/Units 08:16 Sodium 138 (136-145) mEq/L Potassium 3.8 (3.5-4.5) mEq/L Chloride 107 (98-109) mEq/L Carbon Dioxide 23 (19-29) mEq/L BUN 14 (7-20) mg/dL Creatinine 0.83 (0.57-1.11) mg/dL Glucose 88 (70-99) mg/dL Calcium 8.6 (8.6-10.8) mg/dL Calcium panel 06/20/17 Range/Units 08:16 Calcium 8.6 (8.6-10.8) mg/dL Pituitary panel 06/20/17 Range/Units 08:16 Sodium 138 (136-145) mEq/L Potassium 3.8 (3.5-4.5) mEq/L Chloride 107 (98-109) mEq/L Carbon Dioxide 23 (19-29) mEq/L BUN 14 (7-20) mg/dL Creatinine 0.83 (0.57-1.11) mg/dL Glucose 88 (70-99) mg/dL Calcium 8.6 (8.6-10.8) mg/dL Adrenal panel 06/20/17 Range/Units 08:16 Sodium 138 (136-145) mEq/L Potassium 3.8 (3.5-4.5) mEq/L Chloride 107 (98-109) mEq/L Carbon Dioxide 23 (19-29) mEq/L BUN 14 (7-20) mg/dL Creatinine 0.83 (0.57-1.11) mg/dL Glucose 88 (70-99) mg/dL Calcium 8.6 (8.6-10.8) mg/dL Consult Discharge Plan - Plan Referrals: NONE,PCP [Primary Care Provider] - <Doyle Moreno - Last Filed: 06/20/17 21:38> Date of Encounter: 06/20/17 Objective Vital Signs - Last 8 Hours Temp Pulse Resp BP Pulse Ox 06/20/17 18:54 98.0 F 64 15 109/73 95 06/20/17 16:19 18 95 06/20/17 14:49 98.1 F 56 16 107/65 97 Intake and Output 06/20/17 06/20/17 06/20/17 07:59 15:59 23:59 Intake Total 54 54 240 / 240 0 / 0 Output Total 0 / 0 0 / 0 Balance 54 54 240 / 240 0 / 0 Intake: IV Fluids 54 Reglan 20 MG In 0.9 % Sodium 54 / 54 Chloride 50 ML @ 108 mls/hr IVPB Q8H [facility] Rx#:[id number] Oral 240 / 240 0 / 0 Output: Urine 0 / 0 0 / 0 Other: Meal Lunch Dinner Percent of Meal Consumed 0% 50% # Voids 1 # Bowel Movements 0 Weight 76.476 kg Patient Weight 06/20/17 23:59 Weight 76.476 kg - Labs 06/20/17 08:16 06/20/17 08:16 Diabetes panel 06/20/17 Range/Units 08:16 Sodium 138 (136-145) mEq/L Potassium 3.8 (3.5-4.5) mEq/L Chloride 107 (98-109) mEq/L Carbon Dioxide 23 (19-29) mEq/L BUN 14 (7-20) mg/dL Creatinine 0.83 (0.57-1.11) mg/dL Glucose 88 (70-99) mg/dL Calcium 8.6 (8.6-10.8) mg/dL Calcium panel 06/20/17 Range/Units 08:16 Calcium 8.6 (8.6-10.8) mg/dL Pituitary panel 06/20/17 Range/Units 08:16 Sodium 138 (136-145) mEq/L Potassium 3.8 (3.5-4.5) mEq/L Chloride 107 (98-109) mEq/L Carbon Dioxide 23 (19-29) mEq/L BUN 14 (7-20) mg/dL Creatinine 0.83 (0.57-1.11) mg/dL Glucose 88 (70-99) mg/dL Calcium 8.6 (8.6-10.8) mg/dL Adrenal panel 06/20/17 Range/Units 08:16 Sodium 138 (136-145) mEq/L Potassium 3.8 (3.5-4.5) mEq/L Chloride 107 (98-109) mEq/L Carbon Dioxide 23 (19-29) mEq/L BUN 14 (7-20) mg/dL Creatinine 0.83 (0.57-1.11) mg/dL Glucose 88 (70-99) mg/dL Calcium 8.6 (8.6-10.8) mg/dL - Attending Attestation I have seen and examined the patient. I have reviewed the progress note. I agree with the above proposed plan 46F with abdominal pain that is currently resolving; minimal tenderness on exam , normal CT and labs; No acute surgery needed; Please call with any further questions or concerns;
--- NOTE | 2017-06-20 11:51 | General Surgery Consult Note ---
<Shannan Ariza - Last Filed: 06/20/17 11:49> Date of Encounter: 06/19/17 Time of Encounter: 06:50 Assessment and Plan (1) Abdominal pain Status: Resolved Patient has had worsening epigastric pain, anorexia, nausea or vomiting since 3 days post right salpingo-oophorectomy 06/03. Pain radiates to her back with episodic worsening by evening drinking. Physical exam does show a positive Segura's sign but pain pattern is along the costal margin wrapping around to her back. Right upper quadrant at last visit showed biliary sludge and CBD dilation. HIDA scan showed normal gallbladder function with EF of 83%. Surgery recommends clear liquid diet, Reglan 20mg Q8hrs for 36 hrs, and cdiff culture. Plan: - HIDA completed - normal - Reglan 20mg Q8hrs for 36 hrs - cdiff culture - clear liquid diet Qualifiers: Abdominal location: generalized Qualified Code(s): R10.84 - Generalized abdominal pain (2) History of right oophorectomy Status: Acute Surgery occurred 06/03. Incisions healing well. (3) Hypokalemia Status: Resolved K originally 3.0, now 4.0. Resolved. History of Present Illness History of present illness: Ms. Harrington is a 46 year old female with a past surgical history of right salpingo-oophorectomy on 08/[address] Bhat secondary to right complex ovarian cysts patient's only other surgery is a . Patient presented with worsening epigastric pain that radiates to her back and to her RUQ that is episodic and worsened by food or drink. Patient has associated nausea and vomiting and has been unable to keep food or liquid down. Admits to only having 2 bowel movements since surgery but also has reported diarrhea but normally only has a bowel movement once a week. Patient denies dysuria, hematemesis, melena. Patient was previously admitted on 06/13 and had a right upper quadrant ultrasound that showed biliary sagittal and CBD dilation. HIDA scan was obtained this morning which showed normal gallbladder function. Past Med Surg Social Fam HX - Past Medical History Medical history: fibromyalgia, other Psychiatric history: panic disorder - Past Surgical History Surgical History: - Social History Smoking Status: Former smoker Smokeless Tobacco Status: No Alcohol use: none Drug use: none - Family History Mother Adopted: [place]: Erlinda Armenta Family Member Ethnicity: Non- Living Status: Age at : 84 Cause of : Pneumonia Hx Family Cardiac Disorders: Yes Hx Family Respiratory Disorders: No Hx Family Cancer: No Hx Family GI Disorders: No Hx Family Genitourinary Disorders: No Hx Family Endocrine Disorder: No Hx Family Musculoskeletal Disorders: No Hx Family Neuromuscular Disorders: No Hx Family Neurologic Disorders: No Hx Family HEENT Disorders: No Hx Family Autoimmune Disorders: No Hx Family Reproductive Disorders: No Hx Family Psychosocial Disorders: No Hx Family Medical Disorders: No Father Adopted: [place]: Adarsh Armenta Family Member Ethnicity: Non- Living Status: Age at : 72 Cause of : [place] Hx Family Cardiac Disorders: Yes Hx Family Respiratory Disorders: No Hx Family Cancer: No Hx Family GI Disorders: No Hx Family Genitourinary Disorders: No Hx Family Endocrine Disorder: No Hx Family Musculoskeletal Disorders: No Hx Family Neuromuscular Disorders: No Hx Family Neurologic Disorders: No Hx Family HEENT Disorders: No Hx Family Autoimmune Disorders: No Hx Family Reproductive Disorders: No Hx Family Psychosocial Disorders: No Hx Family Medical Disorders: No Medications and Allergies Albuterol Sulfate [Albuterol Inhaler] 2 puff IH Q4H PRN 06/13/17 [History] ALPRAZolam [Xanax 0.5 MG Tablet] 0.5 mg PO DAILY PRN #10 tablet 06/14/17 [Rx] Famotidine [Pepcid] 20 mg PO BID #30 tablet 06/14/17 [Rx] Paroxetine [Paxil] 20 mg PO DAILY #30 tablet 06/14/17 [Rx] Promethazine [Phenergan] 25 mg PO Q6HR PRN #30 tablet 06/14/17 [Rx] OxyCODONE Immed Rel [Roxicodone 5 MG] 5 mg PO Q12HR PRN #7 tablet 06/21/17 [Rx] 3 Allergy/AdvReac Type Severity Reaction Status Date / Time No Known Allergies Allergy Verified 06/03/17 09:19 Review of Systems All systems PM: A 10-system review of systems was performed and is negative for pertinent findings except as documented above in the HPI. General Surgery Exam Initial Vital Signs Temp Pulse Resp BP Pulse Ox 98.9 F 83 16 128/77 94 06/18/17 14:28 06/18/17 14:28 06/18/17 14:28 06/18/17 14:28 06/18/17 14:28 - Additional Findings Constitutional: Alert, in no acute distress, well nourished, well developed. Head: Normocephalic, atraumatic, normal contour and symmetric, no masses, lesions or scars Heart: Normal, regular rate and rhythm, no murmurs Lungs: Clear to auscultation, no wheezes, rales, or rhonchi Abdomen: tender in epigastric region but more tender at the costophrenic margin at the RUQ, + segura's sign, Soft, nondistended, and no masses palpable, bowel sounds present and normal, no guarding or rigidity. Extremities: No clubbing, cyanosis, or edema, radial pulse +2/4, capillary refill <2sec. Skin: Skin warm and dry, no lesions, no rashes, no jaundice Neurologic: Cranial nerves II through XII grossly intact, no focal deficits, strength within normal limits in all extremities Psych: Cooperative with exam, good eye contact, cognitive function intact, judgment good insight good, speech clear, thought process logical, and goal directed Incisions: laproscopic incisions healing well without signs of infection Exam Initial Vital Signs Temp Pulse Resp BP Pulse Ox 98.9 F 83 16 128/77 94 06/18/17 14:28 06/18/17 14:28 06/18/17 14:28 06/18/17 14:28 06/18/17 14:28 Results - Labs 06/20/17 08:16 06/20/17 08:16 Abnormal lab results MCH 27.7 pg (28.0-33.3) L 06/20/17 08:16 POC Glucose 105 (58-89) H 06/19/17 11:08 Albumin 3.4 g/dL (3.5-5.0) L 06/18/17 15:00 Globulin 4.4 g/dL (2.4-3.5) H 06/18/17 15:00 Albumin/Globulin Ratio 0.8 (1.1-2.2) L 06/18/17 15:00 Urine Protein 30 mg/dL (Neg-Trace) H 06/18/17 15:00 Urine Microscopic RBC 3-5 per hpf (0-3) H 06/18/17 15:00 Ur Squamous Epith Cells Many per lpf (None-Few) H 06/18/17 15:00 Diabetes panel 06/20/17 Range/Units 08:16 Sodium 138 (136-145) mEq/L Potassium 3.8 (3.5-4.5) mEq/L Chloride 107 (98-109) mEq/L Carbon Dioxide 23 (19-29) mEq/L BUN 14 (7-20) mg/dL Creatinine 0.83 (0.57-1.11) mg/dL Glucose 88 (70-99) mg/dL Calcium 8.6 (8.6-10.8) mg/dL Calcium panel 06/20/17 Range/Units 08:16 Calcium 8.6 (8.6-10.8) mg/dL Pituitary panel 06/20/17 Range/Units 08:16 Sodium 138 (136-145) mEq/L Potassium 3.8 (3.5-4.5) mEq/L Chloride 107 (98-109) mEq/L Carbon Dioxide 23 (19-29) mEq/L BUN 14 (7-20) mg/dL Creatinine 0.83 (0.57-1.11) mg/dL Glucose 88 (70-99) mg/dL Calcium 8.6 (8.6-10.8) mg/dL Adrenal panel 06/20/17 Range/Units 08:16 Sodium 138 (136-145) mEq/L Potassium 3.8 (3.5-4.5) mEq/L Chloride 107 (98-109) mEq/L Carbon Dioxide 23 (19-29) mEq/L BUN 14 (7-20) mg/dL Creatinine 0.83 (0.57-1.11) mg/dL Glucose 88 (70-99) mg/dL Calcium 8.6 (8.6-10.8) mg/dL All other labs normal. Consult Discharge Plan - Plan Instructions: Hypokalemia (DC), Acute Abdominal Pain (DC) Referrals: NONE,PCP [Primary Care Provider] - Prescriptions: OxyCODONE Immed Rel [Roxicodone 5 MG] 5 mg PO Q12HR PRN #7 tablet PRN Reason: Pain <Sara,Truman T - Last Filed: 06/21/17 15:26> Date of Encounter: 06/19/17 Review of Systems All systems PM: A 10-system review of systems was performed and is negative for pertinent findings except as documented above in the HPI. General Surgery Exam Initial Vital Signs Temp Pulse Resp BP Pulse Ox 98.9 F 83 16 128/77 94 06/18/17 14:28 06/18/17 14:28 06/18/17 14:28 06/18/17 14:28 06/18/17 14:28 Exam Initial Vital Signs Temp Pulse Resp BP Pulse Ox 98.9 F 83 16 128/77 94 06/18/17 14:28 06/18/17 14:28 06/18/17 14:28 06/18/17 14:28 06/18/17 14:28 Results - Labs 06/21/17 08:02 06/21/17 08:02 Abnormal lab results MCH 27.7 pg (28.0-33.3) L 06/21/17 08:02 MPV 9.3 fL (9.4-12.4) L 06/21/17 08:02 POC Glucose 105 (58-89) H 06/19/17 11:08 AST 59 Units/L (5-34) H 06/21/17 08:02 ALT 67 Units/L (0-55) H 06/21/17 08:02 Albumin 3.0 g/dL (3.5-5.0) L 06/21/17 08:02 Globulin 3.6 g/dL (2.4-3.5) H 06/21/17 08:02 Albumin/Globulin Ratio 0.8 (1.1-2.2) L 06/21/17 08:02 Urine Protein 30 mg/dL (Neg-Trace) H 06/18/17 15:00 Urine Microscopic RBC 3-5 per hpf (0-3) H 06/18/17 15:00 Ur Squamous Epith Cells Many per lpf (None-Few) H 06/18/17 15:00 Diabetes panel 06/21/17 Range/Units 08:02 Sodium 140 (136-145) mEq/L Potassium 3.8 (3.5-4.5) mEq/L Chloride 105 (98-109) mEq/L Carbon Dioxide 27 (19-29) mEq/L BUN 9 (7-20) mg/dL Creatinine 0.89 (0.57-1.11) mg/dL Glucose 89 (70-99) mg/dL Calcium 8.9 (8.6-10.8) mg/dL AST 59 H (5-34) Units/L ALT 67 H (0-55) Units/L Alkaline Phosphatase 92 (38-126) Units/L Albumin 3.0 L (3.5-5.0) g/dL Calcium panel 06/21/17 Range/Units 08:02 Calcium 8.9 (8.6-10.8) mg/dL Albumin 3.0 L (3.5-5.0) g/dL Pituitary panel 06/21/17 Range/Units 08:02 Sodium 140 (136-145) mEq/L Potassium 3.8 (3.5-4.5) mEq/L Chloride 105 (98-109) mEq/L Carbon Dioxide 27 (19-29) mEq/L BUN 9 (7-20) mg/dL Creatinine 0.89 (0.57-1.11) mg/dL Glucose 89 (70-99) mg/dL Calcium 8.9 (8.6-10.8) mg/dL Adrenal panel 06/21/17 Range/Units 08:02 Sodium 140 (136-145) mEq/L Potassium 3.8 (3.5-4.5) mEq/L Chloride 105 (98-109) mEq/L Carbon Dioxide 27 (19-29) mEq/L BUN 9 (7-20) mg/dL Creatinine 0.89 (0.57-1.11) mg/dL Glucose 89 (70-99) mg/dL Calcium 8.9 (8.6-10.8) mg/dL Total Bilirubin 0.4 (0.2-1.2) mg/dL AST 59 H (5-34) Units/L ALT 67 H (0-55) Units/L Alkaline Phosphatase 92 (38-126) Units/L Albumin 3.0 L (3.5-5.0) g/dL All other labs normal. - Attending Attestation I examined this patient and my medical decision-making was reviewed with the Resident Physician. I agree with the documented findings, disposition and treatment plan as described except to the extent set forth below. I personally evaluated the patient with rest and repeat physical examination and clinical findings. We will plan on conservative management at this point. We will be glad to follow along with you. Truman Ruiz MD FACS
[2017-06-20] MEDS: *HR* OxyCODONE Immed Rel 5 MG TABLET PO PRN (15:44)
[2017-06-20] MEDS: ALPRAZolam 0.5 MG TABLET PO PRN (18:04)
--- NOTE | 2017-06-20 19:08 | Internal Med Progress Note ---
Date of Encounter: 06/20/17 Time of Encounter: 10:00 - Assessment and plan (1) Abdominal pain Current Visit: Yes Status: Resolved Assessment and plan: - s/p right salpingo-oophorectomy 06/03/2017 -CT of the abdomen/pelvis showed no acute findings. -HIDA scan showed no findings of acute/chronic cholecystitis with normal gallbladder ejection fraction. -Abdominal discomfort is improving; will start patient on clear liquids and advance as tolerates. Qualifiers: Abdominal location: generalized Qualified Code(s): R10.84 - Generalized abdominal pain (2) History of right oophorectomy Current Visit: Yes Status: Acute Assessment and plan: -SENIOR SOFTWARE ANALYST consulted but does not suspect abdominal pain due to oophorectomy. (3) Hypokalemia Current Visit: Yes Status: Resolved Assessment and plan: Will continue to monitor. (4) Anxiety disorder Current Visit: No Status: Acute Assessment and plan: -Continue home medications. Qualifiers: Anxiety disorder type: generalized anxiety disorder Qualified Code(s): F41.1 - Generalized anxiety disorder - Subjective Interval history: Patient reports that abdominal discomfort is improving this morning. - Constitutional Vitals: Temp Pulse Resp BP Pulse Ox 98.0 F 64 15 109/73 95 06/20/17 18:54 06/20/17 18:54 06/20/17 18:54 06/20/17 18:54 06/20/17 18:54 General appearance: Present: A&O X 3, answers questions appropriately - Respiratory Respiratory exam: Present: CTAB. Absent: accessory muscle use, rales, rhonchi, wheezes - Cardiovascular Cardiovascular exam: Present: RRR, +S1, +S2. Absent: diastolic murmur, gallop, rubs, systolic murmur - GI/Abdominal GI/Abdominal exam: Present: normal bowel sounds, soft, no peritoneal signs. Absent: distended, tenderness Internal Medicine: Result - Labs CBC & Chem 7: 06/20/17 08:16 06/20/17 08:16 Labs: Short CBC 06/20/17 Range/Units 08:16 WBC 7.9 (4.3-11.1) K/mcL Hgb 12.5 (11.5-15.4) g/dL Hct 39.3 (35.3-44.9) % Plt Count 221 (140-400) K/mcL Neutrophils # 3.6 (1.6-8.9) K/mcL BMP 06/20/17 08:16 Sodium 138 Potassium 3.8 Chloride 107 Carbon Dioxide 23 BUN 14 Creatinine 0.83 Glucose 88 Calcium 8.6 Consult Discharge Plan - Plan Referrals: NONE,PCP [Primary Care Provider] -
[2017-06-20] MEDS ORDERED: *HR* Morphine 2 MG/ML SYRINGE IVP ONE (20:44)
[2017-06-21] MEDS: *HR* OxyCODONE Immed Rel 5 MG TABLET PO PRN (04:10)
[2017-06-21] MEDS: *HR* Enoxaparin 40 MG/0.4 ML SYRINGE SQ SCH (06:12)
[2017-06-21 08:23] LABS: Basophils # 0.1 K/mcL (0.0-0.2); Basophils % 0.8 %; Eosinophils # 0.4 K/mcL (0.0-0.6); Eosinophils % 4.6 %; Hematocrit 39.3 % (35.3-44.9); Hemoglobin 12.8 g/dL (11.5-15.4); Immature Granulocytes % 0.3 % (0-4); Lymphocytes # 3.3 K/mcL (0.6-4.6); Mean Corpuscular HGB Conc 32.6 g/dL (31.6-35.5); Mean Corpuscular Hemoglobin 27.7 pg (28.0-33.3); Mean Corpuscular Volume 85.1 fL (83.0-100.0); Mean Platelet Volume 9.3 fL (9.4-12.4); Monocytes # 0.7 K/mcL (0.0-1.3); Monocytes % 8.7 %; Neutrophils # 3.4 K/mcL (1.6-8.9); Platelet Count 226 K/mcL (140-400); Red Blood Count 4.62 M/mcL (3.82-4.97); Red Cell Distribution Width 13.1 % (11.5-14.5); Segmented Neutrophils % 43.6 %
[2017-06-21 08:55] LABS: Alanine Aminotransferase 67 Units/L (0-55); Albumin/Globulin Ratio 0.8 (1.1-2.2); Alkaline Phosphatase 92 Units/L (38-126); Aspartate Amino Transferase 59 Units/L (5-34); BUN/Creatinine Ratio 10 (6-26); Bilirubin,Total 0.4 mg/dL (0.2-1.2); Blood Urea Nitrogen 9 mg/dL (7-20); Calcium 8.9 mg/dL (8.6-10.8); Carbon Dioxide 27 mEq/L (19-29); Chloride 105 mEq/L (98-109); Globulin 3.6 g/dL (2.4-3.5); Glucose 89 mg/dL (70-99); Osmolality,Calculated 288 (280-300); Potassium 3.8 mEq/L (3.5-4.5); Sodium 140 mEq/L (136-145); Total Protein 6.6 g/dL (6.0-8.3); eGFR For African Americans > 60 (> 60); eGFR For Non-African Americans > 60 (> 60)
[2017-06-21] MEDS ORDERED: Famotidine 20 MG TABLET PO SCH (09:00)
[2017-06-21 10:47] VITALS: BP 130/85
[2017-06-21] MEDS: ALPRAZolam 0.5 MG TABLET PO PRN (12:25)
--- NOTE | 2017-06-21 14:00 | Discharge Summary ---
Date of Encounter: 06/21/17 Time of Encounter: 10:00 - Discharge Diagnosis (1) Abdominal pain Priority: Primary Status: Resolved Qualifiers: Abdominal location: generalized Qualified Code(s): R10.84 - Generalized abdominal pain (2) History of right oophorectomy Priority: Secondary Status: Acute (3) Hypokalemia Priority: Secondary Status: Resolved (4) Anxiety disorder Priority: Secondary Status: Acute Qualifiers: Anxiety disorder type: generalized anxiety disorder Qualified Code(s): F41.1 - Generalized anxiety disorder - Discharge Medications Prescriptions: OxyCODONE Immed Rel [Roxicodone 5 MG] 5 mg PO Q12HR PRN #7 tablet PRN Reason: Pain Home Medications: Albuterol Sulfate [Albuterol Inhaler] 2 puff IH Q4H PRN 06/13/17 [History] ALPRAZolam [Xanax 0.5 MG Tablet] 0.5 mg PO DAILY PRN #10 tablet 06/14/17 [Rx] Famotidine [Pepcid] 20 mg PO BID #30 tablet 06/14/17 [Rx] Paroxetine [Paxil] 20 mg PO DAILY #30 tablet 06/14/17 [Rx] Promethazine [Phenergan] 25 mg PO Q6HR PRN #30 tablet 06/14/17 [Rx] OxyCODONE Immed Rel [Roxicodone 5 MG] 5 mg PO Q12HR PRN #7 tablet 06/21/17 [Rx] Allergies/Adverse Reactions: 3 Allergy/AdvReac Type Severity Reaction Status Date / Time No Known Allergies Allergy Verified 06/03/17 09:19 Procedures/tests Complete & Pending: Procedures Performed prior 72 hours Category Date Time Status NM hepatobiliary w drug [NM] Routine Exams 06/19/17 08:00 Completed Date of admission: 06/18/17 17:45 Primary care physician: PCP NONE Consults: 06/18/17 18:59 Consult to Nutrition [CONS] Routine Comment: Consulting Provider: NUTRITION Reason for Dietary Consult: MST Score 06/18/17 20:30 Consult to Surgery [CONS] Routine Consulting Provider: [facility] Reason for Consult: abd pain- r/o biliary dysfunction Time Notified: 20:31 Call Completed: Yes 06/18/17 20:33 Consult to FORESTER SILVIC[employer]URE [CONS] Routine Consulting Provider: INTERACTIVE ACCOUNT MANAGER [facility] Reason for Consult: abd pain s/p oophorectomy 06/03/2017 Time Notified: 20:34 Call Completed: Yes - Patient Status Disposition: Home, Self-Care Condition: Good - Discharge Instructions Instructions: Hypokalemia (DC), Acute Abdominal Pain (DC) Hospital course: Patient is a 46 year old female with past medical history significant for COPD, panic disorder and s/p laparoscopic right salpingo-oophorectomy on 06/03/2017, who presented to the ER on 06/18/17 with abdominal pain nausea vomiting. She reported of decreased PO intake and as a result, has lost 14 pounds. She stated that the vomiting occurred after she ate. Pain was intermittent and worse when she ate. [facility]up. During hospital course, OB-TRANSPORT ENGINEER was consulted and did not suspect that her pain was related to her surgery as patient had similar pain before surgery. CT of the abdomen/pelvis showed no acute findings. HIDA scan showed no findings of acute/chronic cholecystitis with normal gallbladder ejection fraction. Patents abdominal discomfort improved and diet was advanced which patient tolerated well. Patient will be discharged to follow up with primary care provider. - Time Spent with Patient Total time spent providing and/or coordinating discharge services: Less than 30 minutes - Constitutional Vitals: Temp Pulse Resp BP Pulse Ox 97.6 F 59 18 130/85 97 06/21/17 10:45 06/21/17 10:45 06/21/17 10:45 06/21/17 10:45 06/21/17 10:45 General appearance: Present: A&O X 3, answers questions appropriately - GI/Abdominal GI/Abdominal exam: Present: normal bowel sounds, soft, no peritoneal signs. Absent: distended, tenderness
== END 2017-06-21 14:39 | disposition home or self-care (01) ==
LOC: EMEROO 14:27 → 3ANU 14:27
PROVIDERS: ADMIT Nurse Practitioner Acute Care; ATTEND Hospitalist